=== PATIENT | male | born 1990 | race African-American/Black ===

== ENCOUNTER 2019-09-03 18:08 | Inpatient (IN) | payer MEDICAID, OTHER ==
[~2019-09-03] VITALS: Ht 175.3 cm; Wt 84.8 kg
[2019-09-03] MEDS ORDERED: SODIUM CHLORIDE 0.9% 1,000 ML IV ONE (19:11)
[2019-09-03] MEDS ORDERED: LORAZEPAM 2MG/ML CPJ IV ONE (19:15)
[2019-09-03 19:56] LABS: HEMATOCRIT. 29.7 % (42.0-52.0); MEAN CORPUSCULAR HEMOGLOBIN 18.8 pg (28.0-32.0); MEAN CORPUSCULAR VOLUME 61.9 fL (80.0-94.0); MEAN PLATELET VOLUME 7.3 fl (7.4-10.4); PLATELET 406 x1000/uL (130-400); RED BLOOD CELL COUNT 4.79 mill/uL (4.7-6.1); RED CELL DISTRIBUTION WIDTH 16.7 % (11.6-14.6)
[2019-09-03 20:01] LABS: CHLORIDE 107 mEq/L (98-107)
[2019-09-03 20:04] LABS: ETHANOL BLOOD < 10 mg/dL
[2019-09-03 20:09] LABS: INR 1.1; PROTHROMBIN TIME 12.4 sec (9.6-11.0)
[2019-09-03 20:16] LABS: PLATELET ESTIMATE INCREASED
[2019-09-03 22:58] LABS: CLARITY URINE CLEAR (CLEAR); COLOR URINE YELLOW (YELLOW); KETONES URINE 4+ (NEGATIVE); LEUKOCYTE ESTERASE URINE NEGATIVE (NEGATIVE); NITRITE URINE NEGATIVE (NEGATIVE); OCCULT BLOOD URINE NEGATIVE (NEGATIVE); PH URINE 5.5 (4.5-8.0); PROTEIN URINE TRACE (NEGATIVE); SPECIFIC GRAVITY URINE 1.023 (1.005-1.030); UROBILINOGEN URINE 0.2 E.U./dL (0.2-1.0)
[2019-09-03 23:16] LABS: *AMPHETAMINES SCREEN URINE NEGATIVE (NEGATIVE); *BARBITURATES SCREEN URINE NEGATIVE (NEGATIVE); *BENZODIAZEPINES SCREEN URINE NEGATIVE (NEGATIVE); *COCAINE SCREEN URINE NEGATIVE (NEGATIVE); METHADONE URINE SCREEN NEGATIVE (NEGATIVE); OPIATES URINE SCREEN NEGATIVE (NEGATIVE)
[2019-09-03 23:17] LABS: CANNABINOID URINE SCREEN NEGATIVE (NEGATIVE); PHENCYCLIDINE URINE SCREEN NEGATIVE (NEGATIVE)
[2019-09-04] MEDS ORDERED: SODIUM CHLORIDE 0.9% 1,000 ML IV SCH (08:53)
[2019-09-04] MEDS ORDERED: ONDANSETRON HCL 4MG/2ML INJ IV PRN (09:00)
[2019-09-04] MEDS ORDERED: IPRATROPIUM/ALBUTEROL 0.5-3(2.5)MG/3ML NEB HHN PRN (09:00)
[2019-09-04] MEDS ORDERED: DIPHENHYDRAMINE 50MG/ML VIAL IV PRN (09:00)
[2019-09-04 09:43] VITALS: BP 144/100
[2019-09-04 09:52] VITALS: BP 144/100
[2019-09-04] MEDS: ENOXAPARIN 40MG/0.4ML SYR SUBCUT SCH (10:43)
[2019-09-04 11:59] LABS: PHOSPHORUS 1.3 mg/dL (2.5-4.9)
[2019-09-04 13:55] LABS: CREATINE KINASE MB FRACTION 8.5 ng/mL (0.5-3.6)
[2019-09-04] MEDS ORDERED: DEXTROSE 50% WATER 50ML SYRINGE IV PRN (14:30)
[2019-09-04] MEDS ORDERED: MAGNESIUM 2 G PREMIX 50 ML IV NR (16:00)
[2019-09-04] MEDS: INSULIN LISPRO 100 UNITS/ML SUBCUT SCH ×2 (16:56→21:00)
[2019-09-04] MEDS: BLOOD SUGAR DIAGNOSTIC STRIP TEST SCH ×2 (16:56→21:00)
[2019-09-04 17:53] LABS: T4 FREE 1.16 ng/dL (0.76-1.46)
[2019-09-04 18:28] LABS: FOLIC ACID (FOLATE) SERUM 18.5 ng/mL (>5.38)
[2019-09-04 20:00] VITALS: BP 145/100
[2019-09-04 23:52] LABS: CREATINE KINASE MB FRACTION 5.3 ng/mL (0.5-3.6)
[2019-09-05] VITALS (25 sets, daily range): BP systolic 109–166; BP diastolic 79–121
[2019-09-05 05:59] LABS: CHLORIDE 111 mEq/L (98-107)
[2019-09-05 06:13] LABS: LDL CHOLESTEROL 105 mg/dL (5-100)
[2019-09-05 06:15] LABS: HDL CHOLESTEROL 27 mg/dL (40-59)
[2019-09-05 06:26] LABS: BASOPHILS % 0.1 % (0.0-2.0); EOSINOPHILS % 0.1 % (0.0-5.0); HEMATOCRIT. 29.8 % (42.0-52.0); HEMOGLOBIN. 9.2 g/dL (14.0-18.0); LYMPHOCYTES % 17.5 % (20.0-50.0); MEAN CORPUSCULAR HEMOGLOBIN 18.8 pg (28.0-32.0); MEAN CORPUSCULAR VOLUME 60.9 fL (80.0-94.0); MEAN PLATELET VOLUME 7.8 fl (7.4-10.4); MONOCYTES % 9.7 % (2.0-8.0); NEUTROPHILS % 72.6 % (40.0-76.0); PLATELET 400 x1000/uL (130-400); RED BLOOD CELL COUNT 4.89 mill/uL (4.7-6.1); RED CELL DISTRIBUTION WIDTH 16.7 % (11.6-14.6); T4 FREE 1.08 ng/dL (0.76-1.46)
[2019-09-05 06:31] LABS: VITAMIN B12 SERUM 1946 pg/mL (211-911)
[2019-09-05] MEDS: BLOOD SUGAR DIAGNOSTIC STRIP TEST SCH ×4 (06:45→20:42)
[2019-09-05] MEDS: INSULIN LISPRO 100 UNITS/ML SUBCUT SCH ×4 (07:15→20:43)
[2019-09-05] MEDS: ENOXAPARIN 40MG/0.4ML SYR SUBCUT SCH (09:35)
[2019-09-05] MEDS ORDERED: POTASSIUM CHLORIDE 10MEQ TABLET SR PO NR (14:45)
[2019-09-05 14:55] LABS: BG CARBOXYHEMOGLOBIN 0.3 % (0.5-1.5); BG DEOXYHEMOGLOBIN 7.3 % (0.0-5.0); BG FRACTION INSPIRED OXYGEN 21; BG HCO3 ACT 19.1 mmol/L (22.0-26.0); BG METHEMOGLOBIN 0.3 % (0.0-1.5); BG OXYGEN SATURATION 92.7 % (92.0-98.5); BG OXYHEMOGLOBIN 92.1 % (94.0-97.0); BG PCO2 31.5 mmHg (35.0-45.0); BG SAMPLE SITE RIGHT BRACHIAL; BG VENT MODE ROOM AIR
[2019-09-05] MEDS ORDERED: NICARDIPINE 50 MG in SODIUM CHLORIDE 0.9% 230 ML IV PRN (15:30)
[2019-09-05] MEDS ORDERED: LEVETIRACETAM 500 MG in SODIUM CHLORIDE 0.9% 100 ML IV SCH (15:45)
[2019-09-05] MEDS ORDERED: DEXT 5%/0.45% NACL 1000ML 1,000 ML IV SCH (17:00)
[2019-09-05 17:39] LABS: PHOSPHORUS 3.4 mg/dL (2.5-4.9)
[2019-09-05] MEDS: SODIUM CHLORIDE 0.9% 1,000 ML IV SCH (18:02)
[2019-09-05] MEDS: PANTOPRAZOLE SODIUM 40 MG/VIAL IV SCH (18:25)
[2019-09-05] MEDS: LEVETIRACETAM 500MG PREMIX 100 ML IV SCH (18:26)
[2019-09-05] MEDS: CEFTRIAXONE 1 G PREMIX 50 ML IV SCH (20:20)
[2019-09-05] MEDS ORDERED: LABETALOL 5MG/ML SYR 20 MG/4 ML SYRINGE IV PRN (21:00)
[2019-09-05] MEDS: NICARDIPINE 100 MG in SODIUM CHLORIDE 0.9% 60 ML IV PRN (21:43)
[2019-09-05] MEDS: DEXAMETHASONE 4MG/ML 1ML VIAL IV SCH (21:56)
[2019-09-05] MEDS ORDERED: PHENYTOIN SODIUM 500 MG in SODIUM CHLORIDE 0.9% 50 ML IV NR (22:30)
[2019-09-05] MEDS ORDERED: BACITRACIN 15GM TUBE TOP ONE (22:32)
[2019-09-05] MEDS ORDERED: LIDOCAINE HCL/EPINEPHRINE 1%-EPI 1:100,000 20 ML VIAL ONE (22:33)
[2019-09-05] MEDS ORDERED: BACITRACIN 50,000 UNITS/VIAL ONE (22:33)
[2019-09-05] MEDS ORDERED: THROMBIN (BOVINE) 5000 UNITS/VIAL TOP ONE (22:33)
[2019-09-05] MEDS ORDERED: NORMAL SALINE 0.9% 10 ML SYR ONE (22:33)
[2019-09-05] MEDS ORDERED: MORPHINE SULFATE 2 MG/ML CPJ (NOT FOR IM USE) IV PRN (23:00)
[2019-09-05] MEDS: MORPHINE SULFATE 2 MG/ML CPJ (NOT FOR IM USE) IV PRN (23:15)
[2019-09-05] MEDS ORDERED: FENTANYL CITRATE/PF 50MCG/ML 2ML VIAL ONE (23:57)
[2019-09-05] MEDS ORDERED: ROCURONIUM BROMIDE 10MG/ML VIAL 5ML IV ONE (23:57)
[2019-09-05] MEDS ORDERED: NEOSTIGMINE METHYLSULFATE 1MG/ML 10 ML VIAL ONE (23:57)
[2019-09-05] MEDS ORDERED: GLYCOPYRROLATE 0.2 MG/ML 2ML VIAL ONE (23:58)
[2019-09-05] MEDS ORDERED: PROPOFOL 200MG/20ML VIAL IV ONE (23:58)
[2019-09-05] MEDS ORDERED: MIDAZOLAM HCL 2 MG/2 ML VIAL ONE (23:58)
[2019-09-06] VITALS (97 sets, daily range): BP systolic 110–178; BP diastolic 51–106
[2019-09-06] MEDS ORDERED: DEXAMETHASONE 4MG/ML 1ML VIAL ONE (00:36)
[2019-09-06] MEDS ORDERED: FENTANYL CITRATE/PF 50MCG/ML 2ML VIAL ONE ×2 (00:36→00:59)
[2019-09-06] MEDS ORDERED: ONDANSETRON HCL 4MG/2ML INJ ONE (00:36)
[2019-09-06] MEDS ORDERED: ROCURONIUM BROMIDE 10MG/ML VIAL 5ML IV ONE (01:29)
[2019-09-06] MEDS ORDERED: HYDROMORPHONE HCL/PF 2MG/ML (OR) ONE (01:38)
[2019-09-06] MEDS ORDERED: SKIN ADHESIVE 0.7 GM EA TOP ONE (01:43)
[2019-09-06] MEDS ORDERED: BACITRACIN 15GM TUBE TOP ONE (01:44)
[2019-09-06 03:04] LABS: BG BASE EXCESS -7.4 mmol/L (-2.0-2.0); BG CARBOXYHEMOGLOBIN 0.2 % (0.5-1.5); BG DEOXYHEMOGLOBIN 1.7 % (0.0-5.0); BG FRACTION INSPIRED OXYGEN 50; BG HCO3 ACT 19.6 mmol/L (22.0-26.0); BG METHEMOGLOBIN 0.3 % (0.0-1.5); BG OXYGEN SATURATION 98.3 % (92.0-98.5); BG OXYHEMOGLOBIN 97.8 % (94.0-97.0); BG PCO2 46.5 mmHg (35.0-45.0); BG PH 7.242 (7.350-7.450); BG PO2 161.4 mmHg (75.0-100.0); BG SAMPLE SITE RIGHT RADIAL; BG TIDAL VOLUME(mL) 600 mL; BG TOTAL HEMOGLOBIN 8.9 g/dL (12.0-18.0); BG VENT MODE VENT - A/C; BG VENT RATE 14 set
[2019-09-06] MEDS: MORPHINE SULFATE 2 MG/ML CPJ (NOT FOR IM USE) IV PRN ×2 (03:11→17:40)
[2019-09-06] MEDS: DEXAMETHASONE 4MG/ML 1ML VIAL IV SCH ×3 (03:11→16:00)
[2019-09-06] MEDS: PHENYTOIN SODIUM 100MG/2ML VIAL IV SCH ×3 (05:14→21:40)
[2019-09-06] MEDS: CEFAZOLIN 1000MG PREMIX 50 ML IV SCH ×3 (05:14→21:40)
[2019-09-06] MEDS: NICARDIPINE 100 MG in SODIUM CHLORIDE 0.9% 60 ML IV PRN ×3 (05:17→22:28)
[2019-09-06] MEDS ORDERED: CEFAZOLIN SODIUM 1000MG/VIAL IV SCH (06:00)
[2019-09-06 06:16] LABS: CHLORIDE 114 mEq/L (98-107)
[2019-09-06 06:19] LABS: HEMATOCRIT. 29.4 % (42.0-52.0); HEMOGLOBIN. 8.7 g/dL (14.0-18.0); MEAN CORPUSCULAR HEMOGLOBIN 18.6 pg (28.0-32.0); PLATELET 412 x1000/uL (130-400); RED BLOOD CELL COUNT 4.66 mill/uL (4.7-6.1)
[2019-09-06 06:27] LABS: TOTAL IRON BINDING CAPACITY 303 ug/dL (250-450)
[2019-09-06] MEDS: INSULIN LISPRO 100 UNITS/ML SUBCUT SCH ×4 (06:30→21:38)
[2019-09-06] MEDS: BLOOD SUGAR DIAGNOSTIC STRIP TEST SCH ×4 (06:30→21:33)
[2019-09-06 08:08] LABS: BG BASE EXCESS -4.8 mmol/L (-2.0-2.0); BG CARBOXYHEMOGLOBIN 0.1 % (0.5-1.5); BG DEOXYHEMOGLOBIN 1.3 % (0.0-5.0); BG HCO3 ACT 19.5 mmol/L (22.0-26.0); BG METHEMOGLOBIN 0.2 % (0.0-1.5); BG OXYGEN SATURATION 98.7 % (92.0-98.5); BG OXYHEMOGLOBIN 98.4 % (94.0-97.0); BG PCO2 32.8 mmHg (35.0-45.0); BG PH 7.392 (7.350-7.450); BG PO2 190.9 mmHg (75.0-100.0); BG SAMPLE SITE RIGHT RADIAL; BG TIDAL VOLUME(mL) 600 mL; BG TOTAL HEMOGLOBIN 9.1 g/dL (12.0-18.0); BG VENT MODE VENT - A/C; BG VENT RATE 20 set
[2019-09-06] MEDS: IRON SUCROSE COMPLEX 100 MG/5 ML ML IV SCH (09:00)
[2019-09-06] MEDS: LEVETIRACETAM 500MG PREMIX 100 ML IV SCH ×2 (09:00→21:40)
[2019-09-06] MEDS: PANTOPRAZOLE SODIUM 40 MG/VIAL IV SCH (09:00)
[2019-09-06 10:14] LABS: PLATELET ESTIMATE SLIGHTLY INCREASED
[2019-09-06] MEDS: CEFTRIAXONE 1 G PREMIX 50 ML IV SCH (17:54)
[2019-09-06] MEDS: MORPHINE SULFATE 4 MG/ML CPJ (NOT FOR IM USE) IV PRN ×2 (18:15→22:29)
[2019-09-06] MEDS: LACTULOSE 20G/30ML UDC PO SCH ×2 (18:48→21:40)
[2019-09-06] MEDS: PROPOFOL 10MG/ML 100ML 100 ML IV PRN ×2 (19:10→22:39)
[2019-09-06] MEDS: SODIUM CHLORIDE 0.9% 1,000 ML IV SCH (21:40)
[2019-09-07] VITALS (90 sets, daily range): BP systolic 130–149; BP diastolic 71–100
[2019-09-07] MEDS: MORPHINE SULFATE 4 MG/ML CPJ (NOT FOR IM USE) IV PRN ×8 (02:00→23:56)
[2019-09-07] MEDS: PROPOFOL 10MG/ML 100ML 100 ML IV PRN ×3 (04:30→20:03)
[2019-09-07] MEDS: MORPHINE SULFATE 2 MG/ML CPJ (NOT FOR IM USE) IV PRN ×2 (05:14→08:48)
[2019-09-07] MEDS: PHENYTOIN SODIUM 100MG/2ML VIAL IV SCH ×3 (05:14→22:44)
[2019-09-07] MEDS: CEFAZOLIN 1000MG PREMIX 50 ML IV SCH ×2 (05:31→14:51)
[2019-09-07 05:51] LABS: CHLORIDE 116 mEq/L (98-107); HEMATOCRIT. 27.4 % (42.0-52.0); HEMOGLOBIN. 8.2 g/dL (14.0-18.0); MEAN CORPUSCULAR HEMOGLOBIN 18.8 pg (28.0-32.0); MEAN CORPUSCULAR VOLUME 62.6 fL (80.0-94.0); MEAN PLATELET VOLUME 8.4 fl (7.4-10.4); PLATELET 298 x1000/uL (130-400); RED BLOOD CELL COUNT 4.37 mill/uL (4.7-6.1); RED CELL DISTRIBUTION WIDTH 16.9 % (11.6-14.6)
[2019-09-07] MEDS: SODIUM CHLORIDE 0.9% 1,000 ML IV SCH (05:58)
[2019-09-07 06:03] LABS: PHOSPHORUS 2.7 mg/dL (2.5-4.9)
[2019-09-07] MEDS: BLOOD SUGAR DIAGNOSTIC STRIP TEST SCH ×4 (06:23→21:14)
[2019-09-07] MEDS: INSULIN LISPRO 100 UNITS/ML SUBCUT SCH ×4 (06:24→21:00)
[2019-09-07] MEDS: LACTULOSE 20G/30ML UDC PO SCH ×3 (06:26→22:44)
[2019-09-07] MEDS: NICARDIPINE 100 MG in SODIUM CHLORIDE 0.9% 60 ML IV PRN ×2 (07:12→16:43)
[2019-09-07] MEDS: LEVETIRACETAM 500MG PREMIX 100 ML IV SCH ×2 (08:17→20:01)
[2019-09-07] MEDS: PANTOPRAZOLE SODIUM 40 MG/VIAL IV SCH (08:47)
[2019-09-07] MEDS: IRON SUCROSE COMPLEX 100 MG/5 ML ML IV SCH (08:47)
[2019-09-07 09:44] LABS: PLATELET ESTIMATE NORMAL
[2019-09-07] MEDS ORDERED: PHENYTOIN SODIUM 600 MG in SODIUM CHLORIDE 0.9% 100 ML IV ONE (15:00)
[2019-09-07] MEDS ORDERED: PROPOFOL 10MG/ML 100ML 100 ML IV PRN (15:45)
[2019-09-07] MEDS: CEFTRIAXONE 1 G PREMIX 50 ML IV SCH (18:00)
[2019-09-07] MEDS ORDERED: MORPHINE SULFATE 2 MG/ML CPJ (NOT FOR IM USE) IV NR (20:27)
[2019-09-08] VITALS (107 sets, daily range): BP systolic 125–161; BP diastolic 70–121
[2019-09-08] MEDS: SODIUM CHLORIDE 0.9% 1,000 ML IV SCH ×2 (01:56→21:10)
[2019-09-08] MEDS: NICARDIPINE 100 MG in SODIUM CHLORIDE 0.9% 60 ML IV PRN ×3 (02:04→21:58)
[2019-09-08] MEDS: PROPOFOL 10MG/ML 100ML 100 ML IV PRN ×4 (03:14→21:24)
[2019-09-08] MEDS: MORPHINE SULFATE 4 MG/ML CPJ (NOT FOR IM USE) IV PRN ×9 (03:22→23:11)
[2019-09-08 04:53] LABS: HEMATOCRIT. 29.5 % (42.0-52.0); HEMOGLOBIN. 8.8 g/dL (14.0-18.0); LYMPHOCYTES % 13.3 % (20.0-50.0); MEAN CORPUSCULAR HEMOGLOBIN 18.8 pg (28.0-32.0); MEAN CORPUSCULAR VOLUME 62.9 fL (80.0-94.0); MEAN PLATELET VOLUME 9.2 fl (7.4-10.4); MONOCYTES % 8.4 % (2.0-8.0); NEUTROPHILS % 78.3 % (40.0-76.0); PLATELET 376 x1000/uL (130-400); RED BLOOD CELL COUNT 4.69 mill/uL (4.7-6.1); RED CELL DISTRIBUTION WIDTH 16.8 % (11.6-14.6)
[2019-09-08 05:21] LABS: CHLORIDE 119 mEq/L (98-107)
[2019-09-08] MEDS: LACTULOSE 20G/30ML UDC PO SCH ×3 (05:54→21:08)
[2019-09-08] MEDS: PHENYTOIN SODIUM 100MG/2ML VIAL IV SCH ×3 (05:54→21:09)
[2019-09-08] MEDS: BLOOD SUGAR DIAGNOSTIC STRIP TEST SCH ×4 (06:48→20:56)
[2019-09-08] MEDS: INSULIN LISPRO 100 UNITS/ML SUBCUT SCH ×4 (06:48→21:08)
[2019-09-08] MEDS: IRON SUCROSE COMPLEX 100 MG/5 ML ML IV SCH (09:00)
[2019-09-08] MEDS: LEVETIRACETAM 500MG PREMIX 100 ML IV SCH ×2 (09:00→21:08)
[2019-09-08] MEDS: PANTOPRAZOLE SODIUM 40 MG/VIAL IV SCH (09:00)
[2019-09-08 10:04] LABS: BG BASE EXCESS -3.2 mmol/L (-2.0-2.0); BG CARBOXYHEMOGLOBIN 0.5 % (0.5-1.5); BG DEOXYHEMOGLOBIN 2.1 % (0.0-5.0); BG FRACTION INSPIRED OXYGEN 35; BG HCO3 ACT 19.5 mmol/L (22.0-26.0); BG METHEMOGLOBIN 0.3 % (0.0-1.5); BG OXYGEN SATURATION 97.9 % (92.0-98.5); BG OXYHEMOGLOBIN 97.1 % (94.0-97.0); BG PH 7.477 (7.350-7.450); BG PO2 114.5 mmHg (75.0-100.0); BG SAMPLE SITE RIGHT RADIAL; BG TIDAL VOLUME(mL) 600 mL; BG TOTAL HEMOGLOBIN 9.5 g/dL (12.0-18.0); BG VENT MODE VENT - A/C; BG VENT RATE 20 set
[2019-09-08] MEDS ORDERED: BISACODYL 10MG SUPP PR NR (10:30)
[2019-09-08] MEDS: METOCLOPRAMIDE HCL 10MG/2ML VIAL IV SCH ×3 (12:50→23:07)
[2019-09-08] MEDS: CEFTRIAXONE 1 G PREMIX 50 ML IV SCH (17:20)
[2019-09-08] MEDS ORDERED: DILTIAZEM HCL 5MG/ML 5ML VIAL IV NR (19:00)
[2019-09-08] MEDS: CLONIDINE 0.1MG TABLET PO PRN (22:15)
[2019-09-09] VITALS (91 sets, daily range): BP systolic 122–167; BP diastolic 59–109
[2019-09-09] MEDS: MORPHINE SULFATE 4 MG/ML CPJ (NOT FOR IM USE) IV PRN ×5 (00:37→12:17)
[2019-09-09] MEDS: PROPOFOL 10MG/ML 100ML 100 ML IV PRN ×4 (00:43→12:20)
[2019-09-09] MEDS: DILTIAZEM HCL 5MG/ML 5ML VIAL IV PRN ×2 (00:44→08:23)
[2019-09-09] MEDS: CLONIDINE 0.1MG TABLET PO PRN (03:55)
[2019-09-09 04:07] LABS: ANTI-CARDIOLIPIN AB IGA < 9 APL U/mL (0-11); ANTI-CARDIOLIPIN AB IGG < 9 GPL U/mL (0-14); ANTI-CARDIOLIPIN AB IGM < 9 MPL U/mL (0-12)
[2019-09-09] MEDS: LACTULOSE 20G/30ML UDC PO SCH ×3 (05:19→21:23)
[2019-09-09] MEDS: NICARDIPINE 100 MG in SODIUM CHLORIDE 0.9% 60 ML IV PRN ×3 (05:20→19:58)
[2019-09-09] MEDS: PHENYTOIN SODIUM 100MG/2ML VIAL IV SCH ×3 (05:21→21:23)
[2019-09-09] MEDS: METOCLOPRAMIDE HCL 10MG/2ML VIAL IV SCH ×3 (05:21→17:54)
[2019-09-09 05:58] LABS: CHLORIDE 122 mEq/L (98-107)
[2019-09-09] MEDS: INSULIN LISPRO 100 UNITS/ML SUBCUT SCH ×4 (06:00→20:26)
[2019-09-09] MEDS: BLOOD SUGAR DIAGNOSTIC STRIP TEST SCH ×4 (06:00→20:26)
[2019-09-09 06:03] LABS: BASOPHILS % 0.1 % (0.0-2.0); HEMATOCRIT. 28.5 % (42.0-52.0); HEMOGLOBIN. 8.1 g/dL (14.0-18.0); LYMPHOCYTES % 10.4 % (20.0-50.0); MEAN CORPUSCULAR HEMOGLOBIN 18.8 pg (28.0-32.0); MEAN CORPUSCULAR VOLUME 65.8 fL (80.0-94.0); MEAN PLATELET VOLUME 9.1 fl (7.4-10.4); MONOCYTES % 9.6 % (2.0-8.0); NEUTROPHILS % 79.9 % (40.0-76.0); PLATELET 290 x1000/uL (130-400); RED BLOOD CELL COUNT 4.33 mill/uL (4.7-6.1); RED CELL DISTRIBUTION WIDTH 17.1 % (11.6-14.6)
[2019-09-09] MEDS: AMLODIPINE 5MG TABLET PO SCH ×2 (08:24→20:41)
[2019-09-09 08:26] LABS: BG BASE EXCESS -2.6 mmol/L (-2.0-2.0); BG FRACTION INSPIRED OXYGEN 35; BG HCO3 ACT 21.4 mmol/L (22.0-26.0); BG PCO2 35.2 mmHg (35.0-45.0); BG PH 7.402 (7.350-7.450); BG PO2 106.1 mmHg (75.0-100.0); BG SAMPLE SITE RIGHT RADIAL; BG TIDAL VOLUME(mL) 550 mL; BG VENT MODE VENT - A/C; BG VENT RATE 16 set
[2019-09-09] MEDS ORDERED: CARVEDILOL 6.25 MG TABLET PO SCH (09:00)
[2019-09-09] MEDS ORDERED: METOPROLOL TARTRATE 5MG/5ML VIAL IV PRN (09:45)
[2019-09-09] MEDS ORDERED: CLONIDINE HCL 0.3MG/24HR PATCH TD SCH (10:00)
[2019-09-09 10:06] LABS: ANTI-MYELOPEROXIDASE AB < 9.0 U/mL (0.0-9.0)
[2019-09-09] MEDS: PANTOPRAZOLE SODIUM 40 MG/VIAL IV SCH (10:26)
[2019-09-09] MEDS: LEVETIRACETAM 500MG PREMIX 100 ML IV SCH ×2 (10:26→20:40)
[2019-09-09] MEDS: DEXTROSE 5% WATER 1,000 ML IV SCH (10:28)
[2019-09-09] MEDS: LOSARTAN POTASSIUM 50 MG TABLET PO SCH (12:16)
[2019-09-09 13:10] LABS: ATYPICAL P-ANCA <1:20 titer (Neg:<1:20); CYTOPLASMIC C-ANCA <1:20 titer (Neg:<1:20); PERINUCLEAR P-ANCA <1:20 titer (Neg:<1:20)
[2019-09-09] MEDS ORDERED: FENTANYL CITRATE/PF 1,000 MCG in SODIUM CHLORIDE 0.9% 80 ML IV PRN (13:15)
[2019-09-09 14:01] LABS: CLARITY URINE CLOUDY (CLEAR); COLOR URINE YELLOW (YELLOW); KETONES URINE NEGATIVE (NEGATIVE); LEUKOCYTE ESTERASE URINE TRACE (NEGATIVE); NITRITE URINE NEGATIVE (NEGATIVE); OCCULT BLOOD URINE NEGATIVE (NEGATIVE); PH URINE 5.5 (4.5-8.0); PROTEIN URINE 1+ (NEGATIVE); SPECIFIC GRAVITY URINE 1.027 (1.005-1.030); UROBILINOGEN URINE 0.2 E.U./dL (0.2-1.0)
[2019-09-09 14:35] LABS: SODIUM URINE RANDOM < 5 mEq/L
[2019-09-09] MEDS: CEFTRIAXONE 1 G PREMIX 50 ML IV SCH (17:54)
[2019-09-09] MEDS: CARVEDILOL 12.5MG TABLET PO SCH (20:41)
[2019-09-10] VITALS (126 sets, daily range): BP systolic 49–152; BP diastolic 24–98
[2019-09-10] MEDS: METOCLOPRAMIDE HCL 10MG/2ML VIAL IV SCH ×4 (00:37→18:36)
[2019-09-10] MEDS: DEXTROSE 5% WATER 1,000 ML IV SCH ×3 (00:37→22:26)
[2019-09-10] MEDS: NICARDIPINE 100 MG in SODIUM CHLORIDE 0.9% 60 ML IV PRN ×2 (03:26→10:54)
[2019-09-10 04:11] LABS: ANTI-THROMBIN ACTIVITY 125 % (75-135); DRVVT LA 50.6 sec (0.0-47.0); DRVVT MIX LA 43.8 sec (0.0-47.0); LUPUS ANTICOAG INTERPRETATION Comment: (.); PROTEIN C FUNCTIONAL 100 % (73-180); PTT-LA 43.6 sec (0.0-51.9)
[2019-09-10] MEDS: PHENYTOIN SODIUM 100MG/2ML VIAL IV SCH ×2 (05:34→12:53)
[2019-09-10] MEDS: LACTULOSE 20G/30ML UDC PO SCH ×2 (05:34→12:53)
[2019-09-10 05:46] LABS: BASOPHILS % 0.1 % (0.0-2.0); EOSINOPHILS % 0.5 % (0.0-5.0); HEMATOCRIT. 25.3 % (42.0-52.0); HEMOGLOBIN. 7.4 g/dL (14.0-18.0); LYMPHOCYTES % 10.7 % (20.0-50.0); MEAN CORPUSCULAR HEMOGLOBIN 19.5 pg (28.0-32.0); MEAN CORPUSCULAR VOLUME 66.5 fL (80.0-94.0); MEAN PLATELET VOLUME 8.5 fl (7.4-10.4); MONOCYTES % 10.7 % (2.0-8.0); PLATELET 304 x1000/uL (130-400); RED BLOOD CELL COUNT 3.81 mill/uL (4.7-6.1); RED CELL DISTRIBUTION WIDTH 16.4 % (11.6-14.6)
[2019-09-10 05:50] LABS: CHLORIDE 125 mEq/L (98-107)
[2019-09-10] MEDS: BLOOD SUGAR DIAGNOSTIC STRIP TEST SCH ×4 (06:37→21:00)
[2019-09-10] MEDS: INSULIN LISPRO 100 UNITS/ML SUBCUT SCH ×4 (06:38→21:00)
[2019-09-10] MEDS: PANTOPRAZOLE SODIUM 40 MG/VIAL IV SCH (08:22)
[2019-09-10] MEDS: MORPHINE SULFATE 4 MG/ML CPJ (NOT FOR IM USE) IV PRN ×4 (08:22→14:49)
[2019-09-10] MEDS: AMLODIPINE 5MG TABLET PO SCH ×2 (08:23→21:00)
[2019-09-10] MEDS: LOSARTAN POTASSIUM 50 MG TABLET PO SCH (08:23)
[2019-09-10] MEDS: CARVEDILOL 12.5MG TABLET PO SCH ×2 (08:23→21:00)
[2019-09-10] MEDS: LEVETIRACETAM 500MG PREMIX 100 ML IV SCH ×2 (08:24→22:26)
[2019-09-10] MEDS ORDERED: METOPROLOL TARTRATE 5MG/5ML VIAL IV PRN (09:30)
[2019-09-10 09:33] LABS: BG BASE EXCESS -2.1 mmol/L (-2.0-2.0); BG CARBOXYHEMOGLOBIN 0.8 % (0.5-1.5); BG DEOXYHEMOGLOBIN 2.6 % (0.0-5.0); BG FRACTION INSPIRED OXYGEN 35; BG HCO3 ACT 22.3 mmol/L (22.0-26.0); BG METHEMOGLOBIN 0.5 % (0.0-1.5); BG OXYGEN SATURATION 97.4 % (92.0-98.5); BG OXYHEMOGLOBIN 96.1 % (94.0-97.0); BG PCO2 36.2 mmHg (35.0-45.0); BG PH 7.408 (7.350-7.450); BG PO2 109.6 mmHg (75.0-100.0); BG SAMPLE SITE RIGHT RADIAL; BG TIDAL VOLUME(mL) 550 mL; BG TOTAL HEMOGLOBIN 5.9 g/dL (12.0-18.0); BG VENT MODE VENT - A/C; BG VENT RATE 16 set
[2019-09-10] MEDS ORDERED: CLONIDINE HCL 0.3MG/24HR PATCH TOP SCH (10:00)
[2019-09-10] MEDS: HYDRALAZINE 20MG/ML VIAL IV SCH ×2 (11:58→18:00)
[2019-09-10 13:06] LABS: ANTI-PROTEINASE 3 ABS 9.2 U/mL (0.0-3.5)
[2019-09-10 13:15] LABS: PLATELET ESTIMATE NORMAL
[2019-09-10] MEDS ORDERED: ESMOLOL 2500MG PREMIX 250 ML IV PRN (16:00)
[2019-09-10] MEDS ORDERED: PHENYLEPHRINE 20 MG in DEXT 5% WATER 248 ML IV PRN (17:30)
[2019-09-10] MEDS: NOREPINEPHRINE 16 MG in DEXT 5% WATER 484 ML IV PRN (18:30)
[2019-09-10] MEDS: CEFTRIAXONE 1 G PREMIX 50 ML IV SCH (18:36)
[2019-09-10] MEDS: PHENYLEPHRINE 80 MG in DEXT 5% WATER 492 ML IV PRN (19:45)
[2019-09-11] VITALS (96 sets, daily range): BP systolic 84–151; BP diastolic 35–111
[2019-09-11] MEDS: LACTULOSE 20G/30ML UDC PO SCH ×4 (00:15→21:58)
[2019-09-11] MEDS: PHENYTOIN SODIUM 100MG/2ML VIAL IV SCH ×4 (00:15→21:58)
[2019-09-11] MEDS: METOCLOPRAMIDE HCL 10MG/2ML VIAL IV SCH ×4 (00:15→17:25)
[2019-09-11] MEDS: DEXTROSE 5% WATER 1,000 ML IV SCH ×3 (03:53→18:52)
[2019-09-11 05:27] LABS: BASOPHILS % 0.1 % (0.0-2.0); EOSINOPHILS % 2.9 % (0.0-5.0); HEMATOCRIT. 24.1 % (42.0-52.0); HEMOGLOBIN. 7.1 g/dL (14.0-18.0); LYMPHOCYTES % 9.4 % (20.0-50.0); MEAN CORPUSCULAR HEMOGLOBIN 20.6 pg (28.0-32.0); MEAN CORPUSCULAR VOLUME 69.7 fL (80.0-94.0); MEAN PLATELET VOLUME 9.3 fl (7.4-10.4); MONOCYTES % 5.3 % (2.0-8.0); NEUTROPHILS % 82.3 % (40.0-76.0); PLATELET 176 x1000/uL (130-400); RED BLOOD CELL COUNT 3.46 mill/uL (4.7-6.1); RED CELL DISTRIBUTION WIDTH 16.9 % (11.6-14.6)
[2019-09-11] MEDS: HYDRALAZINE 20MG/ML VIAL IV SCH ×2 (05:36)
[2019-09-11 05:43] LABS: PHOSPHORUS 6.1 mg/dL (2.5-4.9)
[2019-09-11] MEDS: PANTOPRAZOLE SODIUM 40 MG/VIAL IV SCH (09:03)
[2019-09-11] MEDS: LEVETIRACETAM 500MG PREMIX 100 ML IV SCH ×2 (09:03→21:53)
[2019-09-11 10:35] LABS: BG BASE EXCESS -0.9 mmol/L (-2.0-2.0); BG CARBOXYHEMOGLOBIN 0.9 % (0.5-1.5); BG DEOXYHEMOGLOBIN 0.3 % (0.0-5.0); BG FRACTION INSPIRED OXYGEN 100; BG HCO3 ACT 25.5 mmol/L (22.0-26.0); BG METHEMOGLOBIN 0.2 % (0.0-1.5); BG OXYGEN SATURATION 99.7 % (92.0-98.5); BG OXYHEMOGLOBIN 98.6 % (94.0-97.0); BG PH 7.316 (7.350-7.450); BG PO2 538.2 mmHg (75.0-100.0); BG SAMPLE SITE RIGHT RADIAL; BG TIDAL VOLUME(mL) 550 mL; BG TOTAL HEMOGLOBIN 8.1 g/dL (12.0-18.0); BG VENT MODE VENT - A/C; BG VENT RATE 16 set
[2019-09-11 11:30] LABS: BG BASE EXCESS -2.2 mmol/L (-2.0-2.0); BG CARBOXYHEMOGLOBIN 0.6 % (0.5-1.5); BG DEOXYHEMOGLOBIN 0.5 % (0.0-5.0); BG FRACTION INSPIRED OXYGEN 100; BG HCO3 ACT 23.1 mmol/L (22.0-26.0); BG METHEMOGLOBIN 0.3 % (0.0-1.5); BG OXYGEN SATURATION 99.5 % (92.0-98.5); BG OXYHEMOGLOBIN 98.6 % (94.0-97.0); BG PH 7.359 (7.350-7.450); BG PO2 515.6 mmHg (75.0-100.0); BG SAMPLE SITE RIGHT RADIAL; BG TIDAL VOLUME(mL) 550 mL; BG TOTAL HEMOGLOBIN 7.1 g/dL (12.0-18.0); BG VENT MODE VENT - A/C; BG VENT RATE 20 set
[2019-09-11] MEDS: BLOOD SUGAR DIAGNOSTIC STRIP TEST SCH ×3 (11:44→21:53)
[2019-09-11] MEDS: INSULIN LISPRO 100 UNITS/ML SUBCUT SCH ×3 (11:45→21:00)
[2019-09-11 12:23] LABS: BG BASE EXCESS -1.7 mmol/L (-2.0-2.0); BG DEOXYHEMOGLOBIN 0.3 % (0.0-5.0); BG FRACTION INSPIRED OXYGEN 44; BG HCO3 ACT 28.5 mmol/L (22.0-26.0); BG METHEMOGLOBIN 0.5 % (0.0-1.5); BG OXYGEN SATURATION 99.7 % (92.0-98.5); BG OXYHEMOGLOBIN 98.2 % (94.0-97.0); BG PCO2 95.1 mmHg (35.0-45.0); BG PH 7.094 (7.350-7.450); BG PO2 396.6 mmHg (75.0-100.0); BG SAMPLE SITE RIGHT RADIAL; BG TOTAL HEMOGLOBIN 7.3 g/dL (12.0-18.0); BG VENT MODE NASAL CANNULA
[2019-09-11] MEDS: PHENYLEPHRINE 80 MG in DEXT 5% WATER 492 ML IV PRN (12:34)
[2019-09-11] MEDS: NOREPINEPHRINE 16 MG in DEXT 5% WATER 484 ML IV PRN (22:37)
[2019-09-12] VITALS (78 sets, daily range): BP systolic 74–153; BP diastolic 36–99
[2019-09-12] MEDS: METOCLOPRAMIDE HCL 10MG/2ML VIAL IV SCH ×3 (00:44→12:13)
[2019-09-12] MEDS: PHENYLEPHRINE 80 MG in DEXT 5% WATER 492 ML IV PRN (02:56)
[2019-09-12] MEDS: DEXTROSE 5% WATER 1,000 ML IV SCH ×2 (03:17→13:16)
[2019-09-12 05:21] LABS: PHOSPHORUS 5.7 mg/dL (2.5-4.9)
[2019-09-12] MEDS: PHENYTOIN SODIUM 100MG/2ML VIAL IV SCH (05:34)
[2019-09-12] MEDS: LACTULOSE 20G/30ML UDC PO SCH (05:34)
[2019-09-12] MEDS: BLOOD SUGAR DIAGNOSTIC STRIP TEST SCH ×2 (06:01→11:30)
[2019-09-12] MEDS: INSULIN LISPRO 100 UNITS/ML SUBCUT SCH ×2 (06:02→12:16)
[2019-09-12 06:03] LABS: HEMATOCRIT. 22.7 % (42.0-52.0); RED BLOOD CELL COUNT 3.24 mill/uL (4.7-6.1)
[2019-09-12 06:04] LABS: MEAN CORPUSCULAR HEMOGLOBIN 19.9 pg (28.0-32.0); MEAN PLATELET VOLUME 9.1 fl (7.4-10.4); PLATELET 145 x1000/uL (130-400); RED CELL DISTRIBUTION WIDTH 17.3 % (11.6-14.6)
[2019-09-12 06:05] LABS: HEMOGLOBIN. 6.4 g/dL (14.0-18.0); MEAN CORPUSCULAR VOLUME 70.2 fL (80.0-94.0)
[2019-09-12 07:40] LABS: NUCLEATED RED BLOOD CELLS 1 /100 WBC
[2019-09-12 07:42] LABS: PLATELET ESTIMATE NORMAL
[2019-09-12] MEDS: PANTOPRAZOLE SODIUM 40 MG/VIAL IV SCH (08:47)
[2019-09-12] MEDS: LEVETIRACETAM 500MG PREMIX 100 ML IV SCH (08:47)
[2019-09-16] MEDS ORDERED: CLONIDINE HCL 0.3MG/24HR PATCH TD SCH (09:00)
[2019-09-16 09:06] LABS: HGB A 97.7 % (96.4-98.8); HGB A2 2.3 % (1.8-3.2)
== END 2019-09-11 12:23 | disposition home or self-care (01) | DRG 853 ==
LOC: ER 18:08 → 5WST 23:43 → EDBEDREQ 23:53 → ENRESERV 09-04 07:31 → MICUSO 09-05 19:00
PROVIDERS: ADMIT Internal Medicine; ATTEND Internal Medicine
PROC: 00N00ZZ Release Brain, Open Approach (ICD-10-PCS; principal; 2019-09-06)
PROC: 00U20KZ Supplement Dura Mater with Nonautologous Tissue Substitute, Open Approach (ICD-10-PCS; 2019-09-06)
PROC: 009430Z Drainage of Intracranial Subdural Space with Drainage Device, Percutaneous Approach (ICD-10-PCS; 2019-09-06)
PROC: 4A103BD Monitoring of Intracranial Pressure, Percutaneous Approach (ICD-10-PCS; 2019-09-06)
PROC: 5A1955Z Respiratory Ventilation, Greater than 96 Consecutive Hours (ICD-10-PCS; 2019-09-06)
PROC: 0BH17EZ Insertion of Endotracheal Airway into Trachea, Via Natural or Artificial Opening (ICD-10-PCS; 2019-09-06)
PROC: 05HY33Z Insertion of Infusion Device into Upper Vein, Percutaneous Approach (ICD-10-PCS; 2019-09-08)
PROC: B54MZZA Ultrasonography of Right Upper Extremity Veins, Guidance (ICD-10-PCS; 2019-09-08)
DX: A41.9 Sepsis, unspecified organism (principal); G92 Toxic encephalopathy; E43 Unspecified severe protein-calorie malnutrition; G82.50 Quadriplegia, unspecified; I61.0 Nontraumatic intracerebral hemorrhage in hemisphere, subcortical; I61.5 Nontraumatic intracerebral hemorrhage, intraventricular; I63.512 Cerebral infarction due to unspecified occlusion or stenosis of left middle cerebral artery; I60.9 Nontraumatic subarachnoid hemorrhage, unspecified; J96.00 Acute respiratory failure, unspecified whether with hypoxia or hypercapnia; N17.9 Acute kidney failure, unspecified; E72.20 Disorder of urea cycle metabolism, unspecified; E87.0 Hyperosmolality and hypernatremia; K56.7 Ileus, unspecified; D50.9 Iron deficiency anemia, unspecified; E83.42 Hypomagnesemia; K52.9 Noninfective gastroenteritis and colitis, unspecified; I10 Essential (primary) hypertension; R13.10 Dysphagia, unspecified; Z20.828 Contact with and (suspected) exposure to other viral communicable diseases; D72.810 Lymphocytopenia; E87.6 Hypokalemia; Z66 Do not resuscitate; Z78.1 Physical restraint status; Z79.899 Other long term (current) drug therapy; Z86.73 Personal history of transient ischemic attack (TIA), and cerebral infarction without residual deficits; Z82.49 Family history of ischemic heart disease and other diseases of the circulatory system
CPT/HCPCS: 36415; 36600; 70544; 70553; 71045; 74018; 74176; 76937; 78610; 80048; 80053; 80061; 80076; 80185; 80305; 80320; 81003; 81400; 81403; 81407; 81479; 82140; 82375; 82550; 82553; 82607; 82728; 82746; 82805; 82962; 83021; 83036; 83520; 83540; 83550; 83735; 83880; 83930; 83935; 84100; 84145; 84295; 84300; 84439; 84443; 84478; 84481; 84484; 85025; 85044; 85300; 85303; 85306; 85379; 85613; 85651; 85660; 85732; 86140; 86147; 86256; 86850; 86900; 87070; 93005; 93306; 93880; 93970; 94002; 94003; 97162; 97166; 99285; A9512; C1725; C1769; C9113; J0360; J0690; J0696; J1100; J1165; J1170; J1650; J1815; J1953; J2060; J2250; J2270; J2370; J2405; J2704; J2710; J2765; J3010; J3475; J3490; J7030; J7050; J7060; J7070; G0480; U0003-CS

== ENCOUNTER 2019-09-12 16:16 | Inpatient (IN) | payer OTHER ==
[2019-09-12] VITALS (13 sets, daily range): BP systolic 1–129; BP diastolic 0–71
[~2019-09-12] VITALS: Ht 175.3 cm; Wt 86.6 kg
[2019-09-12] MEDS ORDERED: PHENYLEPHRINE 40 MG in DEXT 5% WATER 496 ML IV PRN (16:45)
[2019-09-12] MEDS ORDERED: NOREPINEPHRINE 16 MG in DEXT 5% WATER 484 ML IV PRN (16:45)
[2019-09-12] MEDS ORDERED: DOBUTAMINE 250MG PREMIX 250 ML IV STA (16:51)
[2019-09-12] MEDS ORDERED: LEVOTHYROXINE SODIUM 100 MCG/ VIAL IV STA (16:51)
[2019-09-12] MEDS ORDERED: VASOPRESSIN 100 UNIT in SODIUM CHLORIDE 0.9% 95 ML IV STA (16:51)
[2019-09-12] MEDS ORDERED: THIAMINE HCL 500 MG in SODIUM CHLORIDE 0.9% 95 ML IV SCH (16:57)
[2019-09-12] MEDS ORDERED: METHYLPREDNISOLONE 40MG/ML INJ IV STA (16:57)
[2019-09-12] MEDS ORDERED: VANCOMYCIN 1,500 MG in DEXT 5% WATER 250 ML IV SCH (17:00)
[2019-09-12] MEDS ORDERED: HETASTARCH/NORMAL SALINE 500 ML PLAST..BAG IV STA (17:03)
[2019-09-12] MEDS ORDERED: DOBUTAMINE 250MG PREMIX 250 ML IV SCH (17:15)
[2019-09-12] MEDS ORDERED: VASOPRESSIN 100 UNIT in SODIUM CHLORIDE 0.9% 95 ML IV SCH (17:15)
[2019-09-12 18:27] LABS: MEAN CORPUSCULAR HEMOGLOBIN 20.2 pg (28.0-32.0); MEAN CORPUSCULAR VOLUME 69.4 fL (80.0-94.0); MEAN PLATELET VOLUME 8.7 fl (7.4-10.4); PLATELET 144 x1000/uL (130-400); RED BLOOD CELL COUNT 3.31 mill/uL (4.7-6.1); RED CELL DISTRIBUTION WIDTH 17.8 % (11.6-14.6)
[2019-09-12 18:29] LABS: CHLORIDE 118 mEq/L (98-107)
[2019-09-12] MEDS ORDERED: SODIUM CHLORIDE 0.9% IV SCH (18:30)
[2019-09-12] MEDS ORDERED: METHYLPREDNISOLONE SOD IV SCH (18:30)
[2019-09-12 18:36] LABS: AMYLASE 134 IU/L (25-115)
[2019-09-12 18:37] LABS: PHOSPHORUS 6.6 mg/dL (2.5-4.9)
[2019-09-12 18:39] LABS: CREATINE KINASE MB FRACTION 38.6 ng/mL (0.5-3.6)
[2019-09-12 18:41] LABS: HEMOGLOBIN. 6.7 g/dL (14.0-18.0)
[2019-09-12 18:51] LABS: CREATINE KINASE 2023 IU/L (39-308)
[2019-09-12 19:14] LABS: BG BASE EXCESS -6.5 mmol/L (-2.0-2.0); BG CARBOXYHEMOGLOBIN 0.8 % (0.5-1.5); BG FRACTION INSPIRED OXYGEN 35; BG HCO3 ACT 18.7 mmol/L (22.0-26.0); BG METHEMOGLOBIN 0.3 % (0.0-1.5); BG OXYHEMOGLOBIN 95.9 % (94.0-97.0); BG PCO2 35.6 mmHg (35.0-45.0); BG PH 7.339 (7.350-7.450); BG SAMPLE SITE LEFT RADIAL; BG TIDAL VOLUME(mL) 550 mL; BG TOTAL HEMOGLOBIN 6.4 g/dL (12.0-18.0); BG VENT MODE VENT - A/C; BG VENT RATE 20 set
[2019-09-12 19:28] LABS: INR 1.1; PARTIAL THROMBOPLASTIN TIME 36.6 sec (23.4-31.0); PROTHROMBIN TIME 11.6 sec (9.6-11.0)
[2019-09-12 20:55] LABS: ATYPICAL LYMPHOCYTES 1; NUCLEATED RED BLOOD CELLS 3 /100 WBC; PLATELET ESTIMATE NORMAL
[2019-09-12] MEDS: LEVOTHYROXINE SODIUM 200 MCG in SODIUM CHLORIDE 0.9% 500 ML IV SCH (21:52)
[2019-09-12] MEDS ORDERED: PIPERACILLIN/TAZOBACTAM 3.375 G/VIAL IV SCH (22:00)
[2019-09-12 22:21] LABS: BG BASE EXCESS -6.3 mmol/L (-2.0-2.0); BG CARBOXYHEMOGLOBIN 0.7 % (0.5-1.5); BG DEOXYHEMOGLOBIN 3.3 % (0.0-5.0); BG FRACTION INSPIRED OXYGEN 40%; BG HCO3 ACT 20.3 mmol/L (22.0-26.0); BG METHEMOGLOBIN 0.3 % (0.0-1.5); BG OXYGEN SATURATION 96.7 % (92.0-98.5); BG OXYHEMOGLOBIN 95.7 % (94.0-97.0); BG PCO2 45.9 mmHg (35.0-45.0); BG PH 7.264 (7.350-7.450); BG PO2 105.7 mmHg (75.0-100.0); BG SAMPLE SITE A-LINE; BG TOTAL HEMOGLOBIN 8.1 g/dL (12.0-18.0); BG VENT MODE VENT - PCV
[2019-09-12] MEDS: PIPERACILLIN/TAZOBACTAM 3.375 G in DEXT 5% WATER 100 ML IV SCH (22:27)
[2019-09-12] MEDS: INSULIN REGULAR (DRIP) 100 UNITS in SODIUM CHLORIDE 0.9% 99 ML IV SCH (23:07)
[2019-09-12] MEDS: HETASTARCH/NORMAL SALINE 500 ML PLAST..BAG IV SCH (23:21)
[2019-09-13] VITALS (90 sets, daily range): BP systolic 91–188; BP diastolic 48–134
[2019-09-13 00:31] LABS: BG BASE EXCESS -6.4 mmol/L (-2.0-2.0); BG CARBOXYHEMOGLOBIN 0.6 % (0.5-1.5); BG DEOXYHEMOGLOBIN 3.2 % (0.0-5.0); BG FRACTION INSPIRED OXYGEN 40; BG HCO3 ACT 19.5 mmol/L (22.0-26.0); BG METHEMOGLOBIN 0.3 % (0.0-1.5); BG OXYGEN SATURATION 96.8 % (92.0-98.5); BG OXYHEMOGLOBIN 95.9 % (94.0-97.0); BG PCO2 40.4 mmHg (35.0-45.0); BG PH 7.301 (7.350-7.450); BG PO2 101.6 mmHg (75.0-100.0); BG SAMPLE SITE A-LINE; BG TOTAL HEMOGLOBIN 8.5 g/dL (12.0-18.0); BG VENT MODE VENT - PCV
[2019-09-13 00:53] LABS: HEMATOCRIT. 26.2 % (42.0-52.0); HEMOGLOBIN. 8.3 g/dL (14.0-18.0); MEAN CORPUSCULAR HEMOGLOBIN 23.8 pg (28.0-32.0); MEAN CORPUSCULAR VOLUME 75.1 fL (80.0-94.0); MEAN PLATELET VOLUME 9.4 fl (7.4-10.4); PLATELET 124 x1000/uL (130-400); RED BLOOD CELL COUNT 3.49 mill/uL (4.7-6.1); RED CELL DISTRIBUTION WIDTH 28.7 % (11.6-14.6)
[2019-09-13 01:06] LABS: PHOSPHORUS 6.3 mg/dL (2.5-4.9)
[2019-09-13] MEDS: ALBUMIN HUMAN 12.5GM/50ML (25%) IV SCH ×2 (01:06→01:36)
[2019-09-13 01:11] LABS: CREATINE KINASE MB FRACTION 59.5 ng/mL (0.5-3.6)
[2019-09-13 01:12] LABS: INR 1.1; PARTIAL THROMBOPLASTIN TIME 34.8 sec (23.4-31.0); PROTHROMBIN TIME 11.6 sec (9.6-11.0)
[2019-09-13] MEDS ORDERED: FUROSEMIDE 40MG/4ML VIAL IVP SCH (01:30)
[2019-09-13] MEDS ORDERED: ALBUMIN HUMAN 25GM/100ML (25%) IV SCH (02:00)
[2019-09-13] MEDS ORDERED: KCL 20MEQ/100ML PREMIX 100 ML IV SCH ×2 (03:00→22:19)
[2019-09-13] MEDS: KCL 20MEQ/100ML PREMIX 100 ML IV SCH ×2 (03:38→04:48)
[2019-09-13] MEDS ORDERED: DEXTROSE 50% WATER 50ML SYRINGE IV SCH (05:00)
[2019-09-13] MEDS: PIPERACILLIN/TAZOBACTAM 3.375 G in DEXT 5% WATER 100 ML IV SCH ×3 (05:10→19:51)
[2019-09-13] MEDS ORDERED: METHYLPREDNISOLONE SOD SUCC 125 MG/2 ML VIAL IV SCH (06:00)
[2019-09-13] MEDS ORDERED: ALBUMIN HUMAN 12.5GM/50ML (25%) IV SCH (06:00)
[2019-09-13 06:07] LABS: BG BASE EXCESS -9.2 mmol/L (-2.0-2.0); BG CARBOXYHEMOGLOBIN 0.7 % (0.5-1.5); BG DEOXYHEMOGLOBIN 2.1 % (0.0-5.0); BG FRACTION INSPIRED OXYGEN 40; BG HCO3 ACT 15.8 mmol/L (22.0-26.0); BG METHEMOGLOBIN 0.3 % (0.0-1.5); BG OXYGEN SATURATION 97.9 % (92.0-98.5); BG OXYHEMOGLOBIN 96.9 % (94.0-97.0); BG PCO2 30.8 mmHg (35.0-45.0); BG PH 7.329 (7.350-7.450); BG PO2 125.6 mmHg (75.0-100.0); BG SAMPLE SITE A-LINE; BG TOTAL HEMOGLOBIN 8.2 g/dL (12.0-18.0); BG VENT MODE VENT - PCV
[2019-09-13 06:21] LABS: INR 1.1; PARTIAL THROMBOPLASTIN TIME 37.1 sec (23.4-31.0); PROTHROMBIN TIME 11.9 sec (9.6-11.0)
[2019-09-13 06:26] LABS: HEMATOCRIT. 26.2 % (42.0-52.0); HEMOGLOBIN. 8.4 g/dL (14.0-18.0); MEAN CORPUSCULAR HEMOGLOBIN 23.6 pg (28.0-32.0); RED BLOOD CELL COUNT 3.54 mill/uL (4.7-6.1); RED CELL DISTRIBUTION WIDTH 28.9 % (11.6-14.6)
[2019-09-13 06:36] LABS: CREATINE KINASE MB FRACTION 60.4 ng/mL (0.5-3.6)
[2019-09-13 06:39] LABS: CLARITY URINE CLOUDY (CLEAR); COLOR URINE YELLOW (YELLOW); KETONES URINE NEGATIVE (NEGATIVE); LEUKOCYTE ESTERASE URINE NEGATIVE (NEGATIVE); NITRITE URINE NEGATIVE (NEGATIVE); OCCULT BLOOD URINE 3+ (NEGATIVE); PROTEIN URINE 1+ (NEGATIVE); SPECIFIC GRAVITY URINE 1.015 (1.005-1.030)
[2019-09-13] MEDS: THIAMINE HCL 100 MG in SODIUM CHLORIDE 0.9% 50 ML IV SCH ×3 (06:46→21:54)
[2019-09-13] MEDS ORDERED: SODIUM BICARBONATE 150 MEQ in WATER FOR INJECTION,STERILE 1,000 ML IV ONE (07:00)
[2019-09-13] MEDS: INSULIN REGULAR IV SCH (08:41)
[2019-09-13] MEDS: POTASSIUM CHLORIDE IV SCH (08:41)
[2019-09-13] MEDS: [UNRECOGNIZED DRUG - OTHER] IV SCH (08:41)
[2019-09-13] MEDS: METHYLPREDNISOLONE SOD SUCC 500 MG in SODIUM CHLORIDE 0.9% 100 ML IV SCH ×2 (08:41→16:02)
[2019-09-13] MEDS: FUROSEMIDE 40MG/4ML VIAL IVP SCH ×3 (08:45→20:11)
[2019-09-13 09:14] LABS: HEMATOCRIT. 24.2 % (42.0-52.0); HEMOGLOBIN. 7.6 g/dL (14.0-18.0); MEAN CORPUSCULAR HEMOGLOBIN 23.2 pg (28.0-32.0); MEAN CORPUSCULAR VOLUME 73.6 fL (80.0-94.0); MEAN PLATELET VOLUME 9.7 fl (7.4-10.4); PLATELET 130 x1000/uL (130-400); RED BLOOD CELL COUNT 3.28 mill/uL (4.7-6.1); RED CELL DISTRIBUTION WIDTH 28.2 % (11.6-14.6)
[2019-09-13 09:16] LABS: INR 1.1; PARTIAL THROMBOPLASTIN TIME 38.8 sec (23.4-31.0); PROTHROMBIN TIME 12.2 sec (9.6-11.0)
[2019-09-13 09:40] LABS: CHLORIDE 117 mEq/L (98-107)
[2019-09-13 09:44] LABS: AMYLASE 207 IU/L (25-115)
[2019-09-13 09:46] LABS: PHOSPHORUS 4.5 mg/dL (2.5-4.9)
[2019-09-13 09:49] LABS: CREATINE KINASE MB FRACTION 53.9 ng/mL (0.5-3.6)
[2019-09-13] MEDS: VANCOMYCIN 500 MG PREMIX 100 ML IV SCH ×2 (09:52→19:50)
[2019-09-13] MEDS: LEVOTHYROXINE SODIUM 200 MCG in SODIUM CHLORIDE 0.9% 500 ML IV SCH ×3 (09:52→20:33)
[2019-09-13 10:01] LABS: CREATINE KINASE 2376 IU/L (39-308)
[2019-09-13 11:08] LABS: PLATELET ESTIMATE SLIGHTLY DECREASED
[2019-09-13 13:05] LABS: PLATELET ESTIMATE SLIGHTLY DECREASED
[2019-09-13 13:07] LABS: PLATELET 107 x1000/uL (130-400)
[2019-09-13] MEDS: INSULIN REGULAR (DRIP) 100 UNITS in SODIUM CHLORIDE 0.9% 99 ML IV SCH ×2 (13:09→16:04)
[2019-09-13 13:22] LABS: BG BASE EXCESS -2.5 mmol/L (-2.0-2.0); BG CARBOXYHEMOGLOBIN 0.4 % (0.5-1.5); BG DEOXYHEMOGLOBIN 1.6 % (0.0-5.0); BG FRACTION INSPIRED OXYGEN 40; BG HCO3 ACT 23.9 mmol/L (22.0-26.0); BG METHEMOGLOBIN 0.1 % (0.0-1.5); BG OXYGEN SATURATION 98.4 % (92.0-98.5); BG OXYHEMOGLOBIN 97.9 % (94.0-97.0); BG PCO2 49.7 mmHg (35.0-45.0); BG PH 7.299 (7.350-7.450); BG PO2 146.3 mmHg (75.0-100.0); BG SAMPLE SITE A-LINE; BG TOTAL HEMOGLOBIN 7.7 g/dL (12.0-18.0); BG VENT MODE APRV
[2019-09-13 13:55] LABS: PLATELET ESTIMATE NORMAL
[2019-09-13 18:19] LABS: BG CARBOXYHEMOGLOBIN 0.4 % (0.5-1.5); BG DEOXYHEMOGLOBIN 1.1 % (0.0-5.0); BG FRACTION INSPIRED OXYGEN 40; BG METHEMOGLOBIN 0.2 % (0.0-1.5); BG OXYGEN SATURATION 98.9 % (92.0-98.5); BG OXYHEMOGLOBIN 98.3 % (94.0-97.0); BG PCO2 47.1 mmHg (35.0-45.0); BG PH 7.422 (7.350-7.450); BG PO2 184.8 mmHg (75.0-100.0); BG SAMPLE SITE A-LINE; BG TOTAL HEMOGLOBIN 7.5 g/dL (12.0-18.0); BG VENT MODE APRV
[2019-09-13] MEDS: HETASTARCH/NORMAL SALINE 500 ML PLAST..BAG IV SCH (19:12)
[2019-09-13] MEDS ORDERED: ACETAZOLAMIDE SODIUM 500MG/VIAL IV NR (20:00)
[2019-09-13 20:44] LABS: INR 1.3; PARTIAL THROMBOPLASTIN TIME 37.9 sec (23.4-31.0); PROTHROMBIN TIME 13.3 sec (9.6-11.0)
[2019-09-13 20:48] LABS: HEMATOCRIT. 22.7 % (42.0-52.0); HEMOGLOBIN. 7.2 g/dL (14.0-18.0); MEAN CORPUSCULAR HEMOGLOBIN 23.3 pg (28.0-32.0); MEAN CORPUSCULAR VOLUME 73.4 fL (80.0-94.0); MEAN PLATELET VOLUME 9.9 fl (7.4-10.4); PLATELET 127 x1000/uL (130-400); RED BLOOD CELL COUNT 3.09 mill/uL (4.7-6.1); RED CELL DISTRIBUTION WIDTH 28.5 % (11.6-14.6)
[2019-09-13 20:50] LABS: BG BASE EXCESS 4.1 mmol/L (-2.0-2.0); BG CARBOXYHEMOGLOBIN 0.3 % (0.5-1.5); BG DEOXYHEMOGLOBIN 0.6 % (0.0-5.0); BG FRACTION INSPIRED OXYGEN 99; BG HCO3 ACT 29.6 mmol/L (22.0-26.0); BG METHEMOGLOBIN 0.4 % (0.0-1.5); BG OXYGEN SATURATION 99.4 % (92.0-98.5); BG OXYHEMOGLOBIN 98.7 % (94.0-97.0); BG PCO2 49.6 mmHg (35.0-45.0); BG PH 7.393 (7.350-7.450); BG PO2 509.6 mmHg (75.0-100.0); BG SAMPLE SITE A-LINE; BG TOTAL HEMOGLOBIN 7.6 g/dL (12.0-18.0); BG VENT MODE APRVC
[2019-09-13 21:25] LABS: AMYLASE 151 IU/L (25-115); CHLORIDE 114 mEq/L (98-107); CREATINE KINASE 1314 IU/L (39-308); CREATINE KINASE MB FRACTION 37.3 ng/mL (0.5-3.6); PHOSPHORUS 2.5 mg/dL (2.5-4.9)
[2019-09-13 21:29] LABS: PLATELET ESTIMATE NORMAL
[2019-09-14] VITALS (100 sets, daily range): BP systolic 72–231; BP diastolic 32–176
[2019-09-14] LABS: CLARITY URINE CLOUDY (CLEAR); COLOR URINE DARK YELLOW (YELLOW); KETONES URINE NEGATIVE (NEGATIVE); LEUKOCYTE ESTERASE URINE NEGATIVE (NEGATIVE); NITRITE URINE NEGATIVE (NEGATIVE); OCCULT BLOOD URINE 2+ (NEGATIVE); PH URINE 5.5 (4.5-8.0); PROTEIN URINE 1+ (NEGATIVE); SPECIFIC GRAVITY URINE 1.017 (1.005-1.030)
[2019-09-14] MEDS: METHYLPREDNISOLONE SOD SUCC 500 MG in SODIUM CHLORIDE 0.9% 100 ML IV SCH ×3 (00:09→16:24)
[2019-09-14] MEDS ORDERED: DEXTROSE 50% WATER 50ML SYRINGE IV ONE (00:15)
[2019-09-14 00:33] LABS: BG CARBOXYHEMOGLOBIN 0.3 % (0.5-1.5); BG DEOXYHEMOGLOBIN 1.1 % (0.0-5.0); BG FRACTION INSPIRED OXYGEN 40; BG METHEMOGLOBIN 0.2 % (0.0-1.5); BG OXYGEN SATURATION 98.9 % (92.0-98.5); BG OXYHEMOGLOBIN 98.4 % (94.0-97.0); BG PCO2 47.1 mmHg (35.0-45.0); BG PH 7.407 (7.350-7.450); BG PO2 179.3 mmHg (75.0-100.0); BG SAMPLE SITE A-LINE; BG TOTAL HEMOGLOBIN 5.3 g/dL (12.0-18.0); BG VENT MODE APRV
[2019-09-14 00:38] LABS: HEMATOCRIT. 22.6 % (42.0-52.0); HEMOGLOBIN. 7.2 g/dL (14.0-18.0); MEAN CORPUSCULAR HEMOGLOBIN 23.7 pg (28.0-32.0); MEAN CORPUSCULAR VOLUME 74.1 fL (80.0-94.0); PLATELET 125 x1000/uL (130-400); RED BLOOD CELL COUNT 3.05 mill/uL (4.7-6.1)
[2019-09-14 00:46] LABS: INR 1.3; PARTIAL THROMBOPLASTIN TIME 32.6 sec (23.4-31.0); PROTHROMBIN TIME 13.7 sec (9.6-11.0)
[2019-09-14 01:07] LABS: PHOSPHORUS 3.2 mg/dL (2.5-4.9)
[2019-09-14 01:13] LABS: CREATINE KINASE MB FRACTION 34.1 ng/mL (0.5-3.6)
[2019-09-14] MEDS: FUROSEMIDE 40MG/4ML VIAL IVP SCH ×4 (01:55→19:58)
[2019-09-14] MEDS: POTASSIUM CHLORIDE IV SCH (01:56)
[2019-09-14] MEDS: INSULIN REGULAR IV SCH (01:56)
[2019-09-14] MEDS: [UNRECOGNIZED DRUG - OTHER] IV SCH (01:56)
[2019-09-14] MEDS: ACETAZOLAMIDE SODIUM 500MG/VIAL IV SCH ×6 (02:14→21:38)
[2019-09-14] MEDS: PIPERACILLIN/TAZOBACTAM 3.375 G in DEXT 5% WATER 100 ML IV SCH ×3 (04:54→19:58)
[2019-09-14] MEDS ORDERED: ALBUMIN HUMAN 25GM/100ML (25%) IV SCH (05:00)
[2019-09-14] MEDS ORDERED: ALBUMIN HUMAN 12.5GM/50ML (25%) IV SCH (05:00)
[2019-09-14 05:41] LABS: MEAN CORPUSCULAR HEMOGLOBIN 23.8 pg (28.0-32.0); MEAN CORPUSCULAR VOLUME 75.2 fL (80.0-94.0); MEAN PLATELET VOLUME 10.1 fl (7.4-10.4); PLATELET 126 x1000/uL (130-400); RED BLOOD CELL COUNT 2.79 mill/uL (4.7-6.1); RED CELL DISTRIBUTION WIDTH 27.9 % (11.6-14.6)
[2019-09-14 05:47] LABS: CHLORIDE 114 mEq/L (98-107)
[2019-09-14 05:48] LABS: INR 1.3; PARTIAL THROMBOPLASTIN TIME 37.1 sec (23.4-31.0)
[2019-09-14 05:55] LABS: AMYLASE 144 IU/L (25-115)
[2019-09-14 05:59] LABS: CREATINE KINASE 910 IU/L (39-308); CREATINE KINASE MB FRACTION 25.3 ng/mL (0.5-3.6)
[2019-09-14] MEDS: THIAMINE HCL 100 MG in SODIUM CHLORIDE 0.9% 50 ML IV SCH ×3 (05:59→21:38)
[2019-09-14 06:18] LABS: BG CARBOXYHEMOGLOBIN 0.4 % (0.5-1.5); BG DEOXYHEMOGLOBIN 1.5 % (0.0-5.0); BG FRACTION INSPIRED OXYGEN 40; BG HCO3 ACT 27.7 mmol/L (22.0-26.0); BG METHEMOGLOBIN 0.2 % (0.0-1.5); BG OXYGEN SATURATION 98.5 % (92.0-98.5); BG OXYHEMOGLOBIN 97.9 % (94.0-97.0); BG PCO2 50.1 mmHg (35.0-45.0); BG PH 7.361 (7.350-7.450); BG PO2 185.1 mmHg (75.0-100.0); BG SAMPLE SITE A-LINE; BG TOTAL HEMOGLOBIN 7.3 g/dL (12.0-18.0); BG VENT MODE APRV
[2019-09-14 06:50] LABS: HEMOGLOBIN. 6.6 g/dL (14.0-18.0)
[2019-09-14] MEDS ORDERED: KCL 20MEQ/100ML PREMIX 100 ML IV SCH (07:00)
[2019-09-14] MEDS: VANCOMYCIN 500 MG PREMIX 100 ML IV SCH ×2 (08:04→19:58)
[2019-09-14] MEDS: INSULIN REGULAR (DRIP) 100 UNITS in SODIUM CHLORIDE 0.9% 99 ML IV SCH (08:06)
[2019-09-14 08:16] LABS: CLARITY URINE CLOUDY (CLEAR); COLOR URINE DK YELLOW (YELLOW); KETONES URINE NEGATIVE (NEGATIVE); LEUKOCYTE ESTERASE URINE TRACE (NEGATIVE); NITRITE URINE NEGATIVE (NEGATIVE); OCCULT BLOOD URINE TRACE (NEGATIVE); PH URINE 5.5 (4.5-8.0); PROTEIN URINE 1+ (NEGATIVE); SPECIFIC GRAVITY URINE 1.021 (1.005-1.030)
[2019-09-14] MEDS: LEVOTHYROXINE SODIUM 200 MCG in SODIUM CHLORIDE 0.9% 500 ML IV SCH (11:47)
[2019-09-14 12:24] LABS: BG BASE EXCESS 3.3 mmol/L (-2.0-2.0); BG CARBOXYHEMOGLOBIN 0.3 % (0.5-1.5); BG DEOXYHEMOGLOBIN 1.2 % (0.0-5.0); BG FRACTION INSPIRED OXYGEN 40; BG METHEMOGLOBIN 0.1 % (0.0-1.5); BG OXYGEN SATURATION 98.8 % (92.0-98.5); BG OXYHEMOGLOBIN 98.4 % (94.0-97.0); BG PCO2 50.2 mmHg (35.0-45.0); BG PO2 184.8 mmHg (75.0-100.0); BG SAMPLE SITE A-LINE; BG TOTAL HEMOGLOBIN 8.9 g/dL (12.0-18.0); BG VENT MODE APRV
[2019-09-14 12:49] LABS: HEMATOCRIT. 25.9 % (42.0-52.0); HEMOGLOBIN. 8.2 g/dL (14.0-18.0); MEAN CORPUSCULAR HEMOGLOBIN 24.4 pg (28.0-32.0); MEAN CORPUSCULAR VOLUME 77.4 fL (80.0-94.0); MEAN PLATELET VOLUME 10.4 fl (7.4-10.4); PLATELET 156 x1000/uL (130-400); RED BLOOD CELL COUNT 3.35 mill/uL (4.7-6.1); RED CELL DISTRIBUTION WIDTH 28.7 % (11.6-14.6)
[2019-09-14 12:57] LABS: PHOSPHORUS 3.2 mg/dL (2.5-4.9)
[2019-09-14 13:00] LABS: CREATINE KINASE MB FRACTION 21.6 ng/mL (0.5-3.6)
[2019-09-14 13:01] LABS: INR 1.4; PARTIAL THROMBOPLASTIN TIME 35.9 sec (23.4-31.0)
[2019-09-14] MEDS: VASOPRESSIN 10 UNIT in SODIUM CHLORIDE 0.9% 99.5 ML IV PRN (14:25)
[2019-09-14 15:00] LABS: PLATELET ESTIMATE SLIGHTLY DECREASED
[2019-09-14 15:06] LABS: PLATELET ESTIMATE SLIGHTLY DECREASED
[2019-09-14 15:08] LABS: CLARITY URINE CLEAR (CLEAR); COLOR URINE DARK YELLOW (YELLOW); KETONES URINE NEGATIVE (NEGATIVE); LEUKOCYTE ESTERASE URINE NEGATIVE (NEGATIVE); NITRITE URINE NEGATIVE (NEGATIVE); OCCULT BLOOD URINE 2+ (NEGATIVE); PROTEIN URINE 1+ (NEGATIVE); SPECIFIC GRAVITY URINE 1.021 (1.005-1.030)
[2019-09-14 15:12] LABS: PLATELET ESTIMATE NORMAL
[2019-09-14 18:05] LABS: BG BASE EXCESS 2.8 mmol/L (-2.0-2.0); BG CARBOXYHEMOGLOBIN 0.3 % (0.5-1.5); BG DEOXYHEMOGLOBIN 1.2 % (0.0-5.0); BG FRACTION INSPIRED OXYGEN 40; BG HCO3 ACT 28.7 mmol/L (22.0-26.0); BG METHEMOGLOBIN 0.3 % (0.0-1.5); BG OXYGEN SATURATION 98.8 % (92.0-98.5); BG OXYHEMOGLOBIN 98.2 % (94.0-97.0); BG PCO2 51.4 mmHg (35.0-45.0); BG PH 7.365 (7.350-7.450); BG PO2 183.1 mmHg (75.0-100.0); BG SAMPLE SITE A-LINE; BG TOTAL HEMOGLOBIN 8.7 g/dL (12.0-18.0); BG VENT MODE VENT - APRV
[2019-09-14 19:57] LABS: BASOPHILS % 0.1 % (0.0-2.0); HEMATOCRIT. 27.3 % (42.0-52.0); HEMOGLOBIN. 8.5 g/dL (14.0-18.0); LYMPHOCYTES % 9.6 % (20.0-50.0); MEAN CORPUSCULAR VOLUME 77.3 fL (80.0-94.0); MEAN PLATELET VOLUME 10.3 fl (7.4-10.4); MONOCYTES % 4.5 % (2.0-8.0); NEUTROPHILS % 85.8 % (40.0-76.0); PLATELET 132 x1000/uL (130-400); RED BLOOD CELL COUNT 3.53 mill/uL (4.7-6.1)
[2019-09-14 19:59] LABS: INR 1.6; PARTIAL THROMBOPLASTIN TIME 33.9 sec (23.4-31.0); PROTHROMBIN TIME 16.1 sec (9.6-11.0)
[2019-09-14 21:15] LABS: CLARITY URINE CLEAR (CLEAR); COLOR URINE DARK YELLOW (YELLOW); KETONES URINE NEGATIVE (NEGATIVE); LEUKOCYTE ESTERASE URINE TRACE (NEGATIVE); NITRITE URINE NEGATIVE (NEGATIVE); OCCULT BLOOD URINE 1+ (NEGATIVE); PH URINE 6.5 (4.5-8.0); PROTEIN URINE 1+ (NEGATIVE)
[2019-09-14 21:17] LABS: CLARITY URINE CLEAR (CLEAR); COLOR URINE DARK YELLOW (YELLOW); KETONES URINE NEGATIVE (NEGATIVE); LEUKOCYTE ESTERASE URINE NEGATIVE (NEGATIVE); NITRITE URINE NEGATIVE (NEGATIVE); OCCULT BLOOD URINE 1+ (NEGATIVE); PROTEIN URINE 1+ (NEGATIVE)
[2019-09-14] MEDS ORDERED: LABETALOL 5MG/ML SYR 20 MG/4 ML SYRINGE IV NR (21:45)
[2019-09-15] VITALS (100 sets, daily range): BP systolic 114–197; BP diastolic 53–127
[2019-09-15] MEDS: INSULIN REGULAR (DRIP) 100 UNITS in SODIUM CHLORIDE 0.9% 99 ML IV SCH ×2 (00:01→13:44)
[2019-09-15] MEDS: METHYLPREDNISOLONE SOD SUCC 500 MG in SODIUM CHLORIDE 0.9% 100 ML IV SCH ×4 (00:01→23:37)
[2019-09-15 00:46] LABS: BG BASE EXCESS -0.5 mmol/L (-2.0-2.0); BG CARBOXYHEMOGLOBIN 0.3 % (0.5-1.5); BG FRACTION INSPIRED OXYGEN 40; BG HCO3 ACT 25.6 mmol/L (22.0-26.0); BG METHEMOGLOBIN 0.1 % (0.0-1.5); BG OXYHEMOGLOBIN 98.6 % (94.0-97.0); BG PCO2 48.1 mmHg (35.0-45.0); BG PH 7.344 (7.350-7.450); BG PO2 199.7 mmHg (75.0-100.0); BG SAMPLE SITE A-LINE; BG VENT MODE APRVC
[2019-09-15 00:56] LABS: HEMATOCRIT. 25.8 % (42.0-52.0); HEMOGLOBIN. 8.1 g/dL (14.0-18.0); MEAN CORPUSCULAR HEMOGLOBIN 24.5 pg (28.0-32.0); MEAN CORPUSCULAR VOLUME 77.9 fL (80.0-94.0); MEAN PLATELET VOLUME 10.3 fl (7.4-10.4); PLATELET 154 x1000/uL (130-400); RED BLOOD CELL COUNT 3.32 mill/uL (4.7-6.1); RED CELL DISTRIBUTION WIDTH 29.4 % (11.6-14.6)
[2019-09-15 01:22] LABS: CLARITY URINE CLEAR (CLEAR); COLOR URINE DARK YELLOW (YELLOW); KETONES URINE NEGATIVE (NEGATIVE); LEUKOCYTE ESTERASE URINE TRACE (NEGATIVE); NITRITE URINE NEGATIVE (NEGATIVE); OCCULT BLOOD URINE NEGATIVE (NEGATIVE); PROTEIN URINE TRACE (NEGATIVE); SPECIFIC GRAVITY URINE 1.022 (1.005-1.030)
[2019-09-15] MEDS: VASOPRESSIN 10 UNIT in SODIUM CHLORIDE 0.9% 99.5 ML IV PRN ×4 (01:28→13:41)
[2019-09-15 01:39] LABS: PHOSPHORUS 6.9 mg/dL (2.5-4.9)
[2019-09-15 01:41] LABS: CREATINE KINASE MB FRACTION 12.7 ng/mL (0.5-3.6)
[2019-09-15] MEDS: FUROSEMIDE 40MG/4ML VIAL IVP SCH ×4 (01:52→20:42)
[2019-09-15] MEDS ORDERED: KCL 20MEQ/100ML PREMIX 100 ML IV SCH ×3 (02:00→17:00)
[2019-09-15 02:10] LABS: INR 1.6; PARTIAL THROMBOPLASTIN TIME 38.1 sec (23.4-31.0); PROTHROMBIN TIME 16.7 sec (9.6-11.0)
[2019-09-15] MEDS: PIPERACILLIN/TAZOBACTAM 3.375 G in DEXT 5% WATER 100 ML IV SCH ×3 (03:53→20:43)
[2019-09-15] MEDS: THIAMINE HCL 100 MG in SODIUM CHLORIDE 0.9% 50 ML IV SCH ×3 (05:27→21:42)
[2019-09-15] MEDS ORDERED: ACETAZOLAMIDE SODIUM 500MG/VIAL IV NR (05:54)
[2019-09-15 06:05] LABS: BG BASE EXCESS 1.7 mmol/L (-2.0-2.0); BG CARBOXYHEMOGLOBIN 0.1 % (0.5-1.5); BG DEOXYHEMOGLOBIN 0.3 % (0.0-5.0); BG FRACTION INSPIRED OXYGEN 100; BG HCO3 ACT 28.8 mmol/L (22.0-26.0); BG METHEMOGLOBIN 0.3 % (0.0-1.5); BG OXYGEN SATURATION 99.7 % (92.0-98.5); BG OXYHEMOGLOBIN 99.3 % (94.0-97.0); BG PCO2 56.7 mmHg (35.0-45.0); BG PH 7.323 (7.350-7.450); BG SAMPLE SITE A-LINE; BG TOTAL HEMOGLOBIN 12.4 g/dL (12.0-18.0); BG VENT MODE APRV
[2019-09-15 06:27] LABS: CLARITY URINE CLEAR (CLEAR); COLOR URINE YELLOW (YELLOW); HEMATOCRIT. 24.8 % (42.0-52.0); HEMOGLOBIN. 7.7 g/dL (14.0-18.0); KETONES URINE NEGATIVE (NEGATIVE); LEUKOCYTE ESTERASE URINE NEGATIVE (NEGATIVE); MEAN CORPUSCULAR VOLUME 77.6 fL (80.0-94.0); MEAN PLATELET VOLUME 10.1 fl (7.4-10.4); NITRITE URINE NEGATIVE (NEGATIVE); OCCULT BLOOD URINE 1+ (NEGATIVE); PLATELET 148 x1000/uL (130-400); PROTEIN URINE TRACE (NEGATIVE); RED CELL DISTRIBUTION WIDTH 29.4 % (11.6-14.6); SPECIFIC GRAVITY URINE 1.019 (1.005-1.030)
[2019-09-15 06:32] LABS: INR 1.7; PROTHROMBIN TIME 17.9 sec (9.6-11.0)
[2019-09-15 06:41] LABS: CREATINE KINASE MB FRACTION 11.8 ng/mL (0.5-3.6)
[2019-09-15] MEDS ORDERED: POTASSIUM CHLORIDE 20MEQ/PACKET NG NR (06:48)
[2019-09-15 07:09] LABS: NUCLEATED RED BLOOD CELLS 2 /100 WBC; PLATELET ESTIMATE NORMAL
[2019-09-15] MEDS: KCL 20MEQ/100ML PREMIX 100 ML IV SCH ×2 (08:27→10:20)
[2019-09-15] MEDS: VANCOMYCIN 500 MG PREMIX 100 ML IV SCH ×2 (08:27→20:42)
[2019-09-15 11:21] LABS: PLATELET ESTIMATE NORMAL
[2019-09-15 12:14] LABS: BG BASE EXCESS 1.2 mmol/L (-2.0-2.0); BG CARBOXYHEMOGLOBIN 0.3 % (0.5-1.5); BG DEOXYHEMOGLOBIN 1.8 % (0.0-5.0); BG FLOW(L/min) 0.75 L/min; BG FRACTION INSPIRED OXYGEN 30; BG HCO3 ACT 27.4 mmol/L (22.0-26.0); BG METHEMOGLOBIN 0.1 % (0.0-1.5); BG OXYGEN SATURATION 98.2 % (92.0-98.5); BG OXYHEMOGLOBIN 97.8 % (94.0-97.0); BG PCO2 52.5 mmHg (35.0-45.0); BG PH 7.336 (7.350-7.450); BG PO2 138.6 mmHg (75.0-100.0); BG SAMPLE SITE A-LINE; BG TOTAL HEMOGLOBIN 8.8 g/dL (12.0-18.0); BG VENT MODE VENT - APRV
[2019-09-15] MEDS: LABETALOL 5MG/ML SYR 20 MG/4 ML SYRINGE IV PRN ×3 (12:23→13:13)
[2019-09-15 12:46] LABS: CLARITY URINE CLEAR (CLEAR); COLOR URINE YELLOW (YELLOW); KETONES URINE NEGATIVE (NEGATIVE); LEUKOCYTE ESTERASE URINE NEGATIVE (NEGATIVE); NITRITE URINE NEGATIVE (NEGATIVE); OCCULT BLOOD URINE TRACE (NEGATIVE); PH URINE 7.5 (4.5-8.0); PROTEIN URINE TRACE (NEGATIVE); SPECIFIC GRAVITY URINE 1.016 (1.005-1.030); UROBILINOGEN URINE 0.2 E.U./dL (0.2-1.0)
[2019-09-15 13:05] LABS: HEMATOCRIT. 26.1 % (42.0-52.0); HEMOGLOBIN. 8.3 g/dL (14.0-18.0); MEAN CORPUSCULAR HEMOGLOBIN 24.7 pg (28.0-32.0); MEAN CORPUSCULAR VOLUME 78.1 fL (80.0-94.0); MEAN PLATELET VOLUME 10.3 fl (7.4-10.4); PLATELET 162 x1000/uL (130-400); RED BLOOD CELL COUNT 3.34 mill/uL (4.7-6.1); RED CELL DISTRIBUTION WIDTH 29.4 % (11.6-14.6)
[2019-09-15 13:10] LABS: INR 1.8; PROTHROMBIN TIME 18.4 sec (9.6-11.0)
[2019-09-15] MEDS ORDERED: NICARDIPINE 40MG/200ML PREMIX 200 ML IV PRN (13:15)
[2019-09-15 13:21] LABS: PHOSPHORUS 4.8 mg/dL (2.5-4.9)
[2019-09-15 13:23] LABS: CREATINE KINASE MB FRACTION 11.7 ng/mL (0.5-3.6)
[2019-09-15 13:45] LABS: PLATELET ESTIMATE NORMAL
[2019-09-15] MEDS ORDERED: DOBUTAMINE 250MG PREMIX 250 ML IV SCH (16:00)
[2019-09-15] MEDS ORDERED: KCL 20MEQ/100ML PREMIX 100 ML IV NR ×3 (16:00→19:00)
[2019-09-15 17:34] LABS: BG BASE EXCESS 0.2 mmol/L (-2.0-2.0); BG CARBOXYHEMOGLOBIN 0.1 % (0.5-1.5); BG DEOXYHEMOGLOBIN 1.3 % (0.0-5.0); BG FRACTION INSPIRED OXYGEN 40; BG HCO3 ACT 27.9 mmol/L (22.0-26.0); BG METHEMOGLOBIN 0.2 % (0.0-1.5); BG OXYGEN SATURATION 98.7 % (92.0-98.5); BG OXYHEMOGLOBIN 98.4 % (94.0-97.0); BG PCO2 63.7 mmHg (35.0-45.0); BG PH 7.259 (7.350-7.450); BG PO2 176.6 mmHg (75.0-100.0); BG SAMPLE SITE A-LINE; BG TIDAL VOLUME(mL) 600 mL; BG TOTAL HEMOGLOBIN 8.5 g/dL (12.0-18.0); BG VENT MODE VENT - A/C PRVC; BG VENT RATE 11 set
[2019-09-15] MEDS: ERYTHROMYCIN 250MG TABLET PO SCH ×2 (17:52→23:39)
[2019-09-15 17:59] LABS: BG DEOXYHEMOGLOBIN 0.4 % (0.0-5.0); BG FRACTION INSPIRED OXYGEN 100; BG HCO3 ACT 27.8 mmol/L (22.0-26.0); BG METHEMOGLOBIN 0.3 % (0.0-1.5); BG OXYGEN SATURATION 99.6 % (92.0-98.5); BG OXYHEMOGLOBIN 99.3 % (94.0-97.0); BG PCO2 57.2 mmHg (35.0-45.0); BG PH 7.305 (7.350-7.450); BG PO2 589.8 mmHg (75.0-100.0); BG SAMPLE SITE A-LINE; BG TIDAL VOLUME(mL) 600 mL; BG TOTAL HEMOGLOBIN 8.9 g/dL (12.0-18.0); BG VENT MODE VENT - A/C PRVC; BG VENT RATE 15 set
[2019-09-15] MEDS ORDERED: INSULIN REGULAR (HUMULIN R) 300UNITS/3ML IV STA (18:11)
[2019-09-15] MEDS ORDERED: NICARDIPINE 40MG/200ML PREMIX 200 ML IV SCH (18:45)
[2019-09-15 18:55] LABS: INR 1.7; PARTIAL THROMBOPLASTIN TIME 36.9 sec (23.4-31.0); PROTHROMBIN TIME 18.7 sec (9.6-11.0)
[2019-09-15 18:57] LABS: PHOSPHORUS 5.7 mg/dL (2.5-4.9)
[2019-09-15 18:58] LABS: CREATINE KINASE MB FRACTION 11.8 ng/mL (0.5-3.6)
[2019-09-15 18:58] LABS: CLARITY URINE CLEAR (CLEAR); COLOR URINE YELLOW (YELLOW); KETONES URINE NEGATIVE (NEGATIVE); LEUKOCYTE ESTERASE URINE NEGATIVE (NEGATIVE); NITRITE URINE NEGATIVE (NEGATIVE); OCCULT BLOOD URINE TRACE (NEGATIVE); PH URINE 7.5 (4.5-8.0); PROTEIN URINE TRACE (NEGATIVE); SPECIFIC GRAVITY URINE 1.017 (1.005-1.030); UROBILINOGEN URINE 0.2 E.U./dL (0.2-1.0)
[2019-09-15 19:03] LABS: HEMOGLOBIN. 7.9 g/dL (14.0-18.0); MEAN CORPUSCULAR HEMOGLOBIN 23.7 pg (28.0-32.0); MEAN CORPUSCULAR VOLUME 77.9 fL (80.0-94.0); MEAN PLATELET VOLUME 9.9 fl (7.4-10.4); PLATELET 164 x1000/uL (130-400); RED BLOOD CELL COUNT 3.34 mill/uL (4.7-6.1); RED CELL DISTRIBUTION WIDTH 29.7 % (11.6-14.6)
[2019-09-15 19:53] LABS: PLATELET ESTIMATE NORMAL
[2019-09-16] VITALS (93 sets, daily range): BP systolic 84–194; BP diastolic 40–120
[2019-09-16 00:15] LABS: BG BASE EXCESS -0.1 mmol/L (-2.0-2.0); BG CARBOXYHEMOGLOBIN 0.2 % (0.5-1.5); BG DEOXYHEMOGLOBIN 1.8 % (0.0-5.0); BG FRACTION INSPIRED OXYGEN 30%; BG HCO3 ACT 26.1 mmol/L (22.0-26.0); BG METHEMOGLOBIN 0.2 % (0.0-1.5); BG OXYGEN SATURATION 98.2 % (92.0-98.5); BG OXYHEMOGLOBIN 97.8 % (94.0-97.0); BG PCO2 50.9 mmHg (35.0-45.0); BG PH 7.327 (7.350-7.450); BG PO2 134.4 mmHg (75.0-100.0); BG SAMPLE SITE A-LINE; BG TOTAL HEMOGLOBIN 8.1 g/dL (12.0-18.0); BG VENT MODE VENT - PCV
[2019-09-16 01:16] LABS: HEMATOCRIT. 26.2 % (42.0-52.0); HEMOGLOBIN. 8.2 g/dL (14.0-18.0); MEAN CORPUSCULAR HEMOGLOBIN 24.3 pg (28.0-32.0); MEAN CORPUSCULAR VOLUME 77.8 fL (80.0-94.0); MEAN PLATELET VOLUME 10.3 fl (7.4-10.4); PLATELET 189 x1000/uL (130-400); RED BLOOD CELL COUNT 3.37 mill/uL (4.7-6.1); RED CELL DISTRIBUTION WIDTH 29.7 % (11.6-14.6)
[2019-09-16 01:18] LABS: PHOSPHORUS 4.2 mg/dL (2.5-4.9)
[2019-09-16] MEDS: VASOPRESSIN 40 UNIT in SODIUM CHLORIDE 0.9% 98 ML IV PRN ×2 (01:18→14:41)
[2019-09-16 01:21] LABS: CREATINE KINASE MB FRACTION 11.7 ng/mL (0.5-3.6)
[2019-09-16] MEDS: FUROSEMIDE 40MG/4ML VIAL IVP SCH ×4 (01:55→19:36)
[2019-09-16 02:10] LABS: INR 1.7; PROTHROMBIN TIME 18.6 sec (9.6-11.0)
[2019-09-16 02:17] LABS: CLARITY URINE CLEAR (CLEAR); COLOR URINE YELLOW (YELLOW); KETONES URINE NEGATIVE (NEGATIVE); LEUKOCYTE ESTERASE URINE NEGATIVE (NEGATIVE); NITRITE URINE NEGATIVE (NEGATIVE); OCCULT BLOOD URINE NEGATIVE (NEGATIVE); PROTEIN URINE TRACE (NEGATIVE); SPECIFIC GRAVITY URINE 1.018 (1.005-1.030); UROBILINOGEN URINE 0.2 E.U./dL (0.2-1.0)
[2019-09-16] MEDS: PIPERACILLIN/TAZOBACTAM 3.375 G in DEXT 5% WATER 100 ML IV SCH ×3 (04:04→19:36)
[2019-09-16] MEDS: INSULIN REGULAR (DRIP) 100 UNITS in SODIUM CHLORIDE 0.9% 99 ML IV SCH ×2 (04:41→18:38)
[2019-09-16] MEDS: THIAMINE HCL 100 MG in SODIUM CHLORIDE 0.9% 50 ML IV SCH ×3 (05:37→22:11)
[2019-09-16] MEDS: ERYTHROMYCIN 250MG TABLET PO SCH ×2 (05:38→13:09)
[2019-09-16 05:42] LABS: BG BASE EXCESS 0.5 mmol/L (-2.0-2.0); BG CARBOXYHEMOGLOBIN 0.3 % (0.5-1.5); BG DEOXYHEMOGLOBIN 1.4 % (0.0-5.0); BG FRACTION INSPIRED OXYGEN 40; BG HCO3 ACT 27.3 mmol/L (22.0-26.0); BG METHEMOGLOBIN 0.2 % (0.0-1.5); BG OXYGEN SATURATION 98.6 % (92.0-98.5); BG OXYHEMOGLOBIN 98.1 % (94.0-97.0); BG PH 7.306 (7.350-7.450); BG PO2 169.5 mmHg (75.0-100.0); BG SAMPLE SITE A-LINE; BG TIDAL VOLUME(mL) 500 mL; BG TOTAL HEMOGLOBIN 9.1 g/dL (12.0-18.0); BG VENT MODE VENT - PCV; BG VENT RATE 15 set
[2019-09-16 06:15] LABS: PHOSPHORUS 3.6 mg/dL (2.5-4.9)
[2019-09-16 06:17] LABS: CREATINE KINASE MB FRACTION 9.7 ng/mL (0.5-3.6)
[2019-09-16 06:19] LABS: BG BASE EXCESS -2.3 mmol/L (-2.0-2.0); BG CARBOXYHEMOGLOBIN 0.3 % (0.5-1.5); BG DEOXYHEMOGLOBIN 0.6 % (0.0-5.0); BG FRACTION INSPIRED OXYGEN 100; BG HCO3 ACT 24.7 mmol/L (22.0-26.0); BG METHEMOGLOBIN 0.2 % (0.0-1.5); BG OXYGEN SATURATION 99.4 % (92.0-98.5); BG OXYHEMOGLOBIN 98.9 % (94.0-97.0); BG PCO2 52.7 mmHg (35.0-45.0); BG PH 7.288 (7.350-7.450); BG PO2 513.2 mmHg (75.0-100.0); BG SAMPLE SITE A-LINE; BG TIDAL VOLUME(mL) 500 mL; BG TOTAL HEMOGLOBIN 10.5 g/dL (12.0-18.0); BG VENT MODE VENT - PCV; BG VENT RATE 15 set
[2019-09-16 06:21] LABS: CLARITY URINE CLEAR (CLEAR); COLOR URINE YELLOW (YELLOW); KETONES URINE NEGATIVE (NEGATIVE); LEUKOCYTE ESTERASE URINE NEGATIVE (NEGATIVE); NITRITE URINE NEGATIVE (NEGATIVE); OCCULT BLOOD URINE NEGATIVE (NEGATIVE); PROTEIN URINE TRACE (NEGATIVE); SPECIFIC GRAVITY URINE 1.019 (1.005-1.030); UROBILINOGEN URINE 0.2 E.U./dL (0.2-1.0)
[2019-09-16 06:52] LABS: BG BASE EXCESS 1.9 mmol/L (-2.0-2.0); BG CARBOXYHEMOGLOBIN 0.7 % (0.5-1.5); BG DEOXYHEMOGLOBIN 2.1 % (0.0-5.0); BG FRACTION INSPIRED OXYGEN 30; BG HCO3 ACT 27.8 mmol/L (22.0-26.0); BG METHEMOGLOBIN 0.1 % (0.0-1.5); BG OXYGEN SATURATION 97.9 % (92.0-98.5); BG OXYHEMOGLOBIN 97.1 % (94.0-97.0); BG PCO2 50.5 mmHg (35.0-45.0); BG PH 7.358 (7.350-7.450); BG SAMPLE SITE A-LINE; BG VENT MODE VENT - PCV
[2019-09-16 07:09] LABS: PARTIAL THROMBOPLASTIN TIME 36.6 sec (23.4-31.0); PROTHROMBIN TIME 19.9 sec (9.6-11.0)
[2019-09-16 07:22] LABS: HEMATOCRIT. 25.4 % (42.0-52.0); MEAN CORPUSCULAR HEMOGLOBIN 24.5 pg (28.0-32.0); MEAN CORPUSCULAR VOLUME 77.4 fL (80.0-94.0); PLATELET 177 x1000/uL (130-400); RED BLOOD CELL COUNT 3.28 mill/uL (4.7-6.1); RED CELL DISTRIBUTION WIDTH 29.8 % (11.6-14.6)
[2019-09-16] MEDS: METHYLPREDNISOLONE SOD SUCC 500 MG in SODIUM CHLORIDE 0.9% 100 ML IV SCH ×2 (08:36→16:15)
[2019-09-16] MEDS: VANCOMYCIN 500 MG PREMIX 100 ML IV SCH ×2 (08:38→19:52)
[2019-09-16] MEDS ORDERED: KCL 20MEQ/100ML PREMIX 100 ML IV SCH (10:00)
[2019-09-16 10:35] LABS: NUCLEATED RED BLOOD CELLS 1 /100 WBC
[2019-09-16 10:36] LABS: PLATELET ESTIMATE NORMAL
[2019-09-16 10:43] LABS: PLATELET ESTIMATE NORMAL
[2019-09-16 12:24] LABS: BG FRACTION INSPIRED OXYGEN 30; BG HCO3 ACT 13.9 mmol/L (22.0-26.0); BG PCO2 23.1 mmHg (35.0-45.0); BG PH 7.398 (7.350-7.450); BG PO2 140.9 mmHg (75.0-100.0); BG SAMPLE SITE A-LINE; BG TOTAL HEMOGLOBIN < 4.5 g/dL (12.0-18.0); BG VENT MODE VENT- PRVC
[2019-09-16 12:37] LABS: HEMATOCRIT. 25.2 % (42.0-52.0); HEMOGLOBIN. 7.9 g/dL (14.0-18.0); MEAN CORPUSCULAR HEMOGLOBIN 24.1 pg (28.0-32.0); MEAN CORPUSCULAR VOLUME 76.7 fL (80.0-94.0); PLATELET 248 x1000/uL (130-400); RED BLOOD CELL COUNT 3.28 mill/uL (4.7-6.1); RED CELL DISTRIBUTION WIDTH 29.5 % (11.6-14.6)
[2019-09-16 12:51] LABS: CHLORIDE 119 mEq/L (98-107)
[2019-09-16 12:57] LABS: PHOSPHORUS 2.8 mg/dL (2.5-4.9)
[2019-09-16 13:00] LABS: CREATINE KINASE 441 IU/L (39-308)
[2019-09-16 13:03] LABS: NUCLEATED RED BLOOD CELLS 1 /100 WBC; PLATELET ESTIMATE NORMAL
[2019-09-16 13:05] LABS: AMYLASE 216 IU/L (25-115)
[2019-09-16] MEDS ORDERED: NICARDIPINE 50 MG in SODIUM CHLORIDE 0.9% 230 ML IV PRN (13:30)
[2019-09-16 14:14] LABS: CLARITY URINE CLEAR (CLEAR); COLOR URINE YELLOW (YELLOW); KETONES URINE NEGATIVE (NEGATIVE); LEUKOCYTE ESTERASE URINE NEGATIVE (NEGATIVE); NITRITE URINE NEGATIVE (NEGATIVE); OCCULT BLOOD URINE NEGATIVE (NEGATIVE); PROTEIN URINE TRACE (NEGATIVE); SPECIFIC GRAVITY URINE 1.021 (1.005-1.030)
[2019-09-16 14:28] LABS: PARTIAL THROMBOPLASTIN TIME 34.3 sec (23.4-31.0); PROTHROMBIN TIME 20.7 sec (9.6-11.0)
[2019-09-16 15:17] LABS: BG BASE EXCESS 1.8 mmol/L (-2.0-2.0); BG FRACTION INSPIRED OXYGEN 30; BG HCO3 ACT 27.5 mmol/L (22.0-26.0); BG PCO2 49.4 mmHg (35.0-45.0); BG PH 7.364 (7.350-7.450); BG PO2 130.4 mmHg (75.0-100.0); BG SAMPLE SITE A-LINE; BG TOTAL HEMOGLOBIN 8.7 g/dL (12.0-18.0); BG VENT MODE VENT - A/C
[2019-09-16] MEDS: ERYTHROMYCIN 250MG CAPSULE DR PO SCH (17:50)
[2019-09-16 18:18] LABS: BG BASE EXCESS 0.1 mmol/L (-2.0-2.0); BG CARBOXYHEMOGLOBIN 0.2 % (0.5-1.5); BG DEOXYHEMOGLOBIN 1.5 % (0.0-5.0); BG HCO3 ACT 27.2 mmol/L (22.0-26.0); BG METHEMOGLOBIN 0.3 % (0.0-1.5); BG OXYGEN SATURATION 98.5 % (92.0-98.5); BG PCO2 58.4 mmHg (35.0-45.0); BG PH 7.286 (7.350-7.450); BG PO2 171.4 mmHg (75.0-100.0); BG SAMPLE SITE A-LINE; BG TIDAL VOLUME(mL) 500 mL; BG TOTAL HEMOGLOBIN 8.9 g/dL (12.0-18.0); BG VENT MODE VENT - A/C; BG VENT RATE 11 set
[2019-09-16 18:59] LABS: HEMATOCRIT. 25.3 % (42.0-52.0); HEMOGLOBIN. 7.9 g/dL (14.0-18.0); MEAN CORPUSCULAR VOLUME 77.1 fL (80.0-94.0); MEAN PLATELET VOLUME 10.2 fl (7.4-10.4); PLATELET 242 x1000/uL (130-400); RED BLOOD CELL COUNT 3.28 mill/uL (4.7-6.1); RED CELL DISTRIBUTION WIDTH 30.1 % (11.6-14.6)
[2019-09-16 19:07] LABS: BG BASE EXCESS -0.9 mmol/L (-2.0-2.0); BG FRACTION INSPIRED OXYGEN 40; BG HCO3 ACT 24.7 mmol/L (22.0-26.0); BG OXYGEN SATURATION 98.5 % (92.0-98.5); BG OXYHEMOGLOBIN 98.1 % (94.0-97.0); BG PCO2 45.5 mmHg (35.0-45.0); BG PH 7.352 (7.350-7.450); BG PO2 173.5 mmHg (75.0-100.0); BG SAMPLE SITE A-LINE; BG TIDAL VOLUME(mL) 500 mL; BG TOTAL HEMOGLOBIN 8.3 g/dL (12.0-18.0); BG VENT MODE VENT - A/C; BG VENT RATE 15 set
[2019-09-16 19:08] LABS: BG CARBOXYHEMOGLOBIN 0.3 % (0.5-1.5); BG DEOXYHEMOGLOBIN 1.5 % (0.0-5.0); BG METHEMOGLOBIN 0.1 % (0.0-1.5)
[2019-09-16 19:21] LABS: INR 2.1; PARTIAL THROMBOPLASTIN TIME 33.6 sec (23.4-31.0); PROTHROMBIN TIME 21.4 sec (9.6-11.0)
[2019-09-16 19:22] LABS: PHOSPHORUS 3.7 mg/dL (2.5-4.9)
[2019-09-16 19:24] LABS: CREATINE KINASE MB FRACTION 6.6 ng/mL (0.5-3.6)
[2019-09-16 19:42] LABS: PLATELET ESTIMATE NORMAL
[2019-09-16 20:13] LABS: BG BASE EXCESS 1.5 mmol/L (-2.0-2.0); BG CARBOXYHEMOGLOBIN 0.3 % (0.5-1.5); BG DEOXYHEMOGLOBIN 0.4 % (0.0-5.0); BG FRACTION INSPIRED OXYGEN 100; BG HCO3 ACT 27.3 mmol/L (22.0-26.0); BG METHEMOGLOBIN 0.2 % (0.0-1.5); BG OXYGEN SATURATION 99.6 % (92.0-98.5); BG OXYHEMOGLOBIN 99.1 % (94.0-97.0); BG PCO2 49.5 mmHg (35.0-45.0); BG PH 7.359 (7.350-7.450); BG PO2 513.4 mmHg (75.0-100.0); BG SAMPLE SITE HEEL; BG TIDAL VOLUME(mL) 500 mL; BG TOTAL HEMOGLOBIN 7.6 g/dL (12.0-18.0); BG VENT MODE VENT - PCV; BG VENT RATE 15 set
[2019-09-16 20:45] LABS: CLARITY URINE CLEAR (CLEAR); COLOR URINE YELLOW (YELLOW); KETONES URINE NEGATIVE (NEGATIVE); LEUKOCYTE ESTERASE URINE NEGATIVE (NEGATIVE); NITRITE URINE NEGATIVE (NEGATIVE); OCCULT BLOOD URINE NEGATIVE (NEGATIVE); PROTEIN URINE TRACE (NEGATIVE); SPECIFIC GRAVITY URINE 1.022 (1.005-1.030); UROBILINOGEN URINE 0.2 E.U./dL (0.2-1.0)
[2019-09-17] VITALS (102 sets, daily range): BP systolic 96–213; BP diastolic 16–130
[2019-09-17] MEDS: METHYLPREDNISOLONE SOD SUCC 500 MG in SODIUM CHLORIDE 0.9% 100 ML IV SCH ×4 (00:03→23:42)
[2019-09-17] MEDS: ERYTHROMYCIN 250MG CAPSULE DR PO SCH ×5 (00:03→23:43)
[2019-09-17 00:29] LABS: BG CARBOXYHEMOGLOBIN 0.3 % (0.5-1.5); BG DEOXYHEMOGLOBIN 2.1 % (0.0-5.0); BG FRACTION INSPIRED OXYGEN 30; BG HCO3 ACT 27.4 mmol/L (22.0-26.0); BG OXYGEN SATURATION 97.9 % (92.0-98.5); BG OXYHEMOGLOBIN 97.6 % (94.0-97.0); BG PCO2 46.4 mmHg (35.0-45.0); BG PH 7.389 (7.350-7.450); BG PO2 124.6 mmHg (75.0-100.0); BG SAMPLE SITE A-LINE; BG TOTAL HEMOGLOBIN 10.3 g/dL (12.0-18.0); BG VENT MODE VENT - PCV
[2019-09-17 00:38] LABS: CLARITY URINE TURBID (CLEAR); COLOR URINE YELLOW (YELLOW); KETONES URINE NEGATIVE (NEGATIVE); LEUKOCYTE ESTERASE URINE NEGATIVE (NEGATIVE); NITRITE URINE NEGATIVE (NEGATIVE); OCCULT BLOOD URINE NEGATIVE (NEGATIVE); PH URINE 5.5 (4.5-8.0); PROTEIN URINE TRACE (NEGATIVE); SPECIFIC GRAVITY URINE 1.023 (1.005-1.030)
[2019-09-17 00:39] LABS: HEMATOCRIT. 30.9 % (42.0-52.0); HEMOGLOBIN. 10.1 g/dL (14.0-18.0); MEAN CORPUSCULAR HEMOGLOBIN 25.7 pg (28.0-32.0); MEAN CORPUSCULAR VOLUME 78.3 fL (80.0-94.0); MEAN PLATELET VOLUME 10.4 fl (7.4-10.4); PLATELET 198 x1000/uL (130-400); RED BLOOD CELL COUNT 3.95 mill/uL (4.7-6.1); RED CELL DISTRIBUTION WIDTH 28.1 % (11.6-14.6)
[2019-09-17 00:42] LABS: CHLORIDE 119 mEq/L (98-107)
[2019-09-17 00:45] LABS: INR 2.1; PARTIAL THROMBOPLASTIN TIME 32.8 sec (23.4-31.0); PROTHROMBIN TIME 20.9 sec (9.6-11.0)
[2019-09-17 00:46] LABS: AMYLASE 255 IU/L (25-115)
[2019-09-17 00:48] LABS: PHOSPHORUS 3.3 mg/dL (2.5-4.9)
[2019-09-17 00:50] LABS: CREATINE KINASE 260 IU/L (39-308); CREATINE KINASE MB FRACTION 5.6 ng/mL (0.5-3.6)
[2019-09-17] MEDS ORDERED: KCL 20MEQ/100ML PREMIX 100 ML IV SCH ×2 (02:00→03:00)
[2019-09-17] MEDS ORDERED: PHYTONADIONE 10 MG in DEXTROSE 5% WATER 50 ML IV SCH (02:00)
[2019-09-17] MEDS: FUROSEMIDE 40MG/4ML VIAL IVP SCH ×4 (02:10→21:38)
[2019-09-17 05:03] LABS: PLATELET ESTIMATE NORMAL
[2019-09-17] MEDS: PIPERACILLIN/TAZOBACTAM 3.375 G in DEXT 5% WATER 100 ML IV SCH ×3 (05:13→20:52)
[2019-09-17] MEDS: THIAMINE HCL 100 MG in SODIUM CHLORIDE 0.9% 50 ML IV SCH ×3 (05:37→22:23)
[2019-09-17 06:08] LABS: BG BASE EXCESS -0.3 mmol/L (-2.0-2.0); BG CARBOXYHEMOGLOBIN 0.1 % (0.5-1.5); BG DEOXYHEMOGLOBIN 2.6 % (0.0-5.0); BG FRACTION INSPIRED OXYGEN 30; BG HCO3 ACT 24.8 mmol/L (22.0-26.0); BG METHEMOGLOBIN 0.1 % (0.0-1.5); BG OXYGEN SATURATION 97.4 % (92.0-98.5); BG OXYHEMOGLOBIN 97.2 % (94.0-97.0); BG PCO2 42.4 mmHg (35.0-45.0); BG PH 7.385 (7.350-7.450); BG PO2 111.3 mmHg (75.0-100.0); BG SAMPLE SITE A-LINE; BG TOTAL HEMOGLOBIN 10.4 g/dL (12.0-18.0); BG VENT MODE VENT - PCV
[2019-09-17 06:22] LABS: HEMATOCRIT. 30.1 % (42.0-52.0); HEMOGLOBIN. 9.7 g/dL (14.0-18.0); MEAN CORPUSCULAR HEMOGLOBIN 25.4 pg (28.0-32.0); MEAN CORPUSCULAR VOLUME 78.3 fL (80.0-94.0); MEAN PLATELET VOLUME 10.3 fl (7.4-10.4); PLATELET 202 x1000/uL (130-400); RED BLOOD CELL COUNT 3.84 mill/uL (4.7-6.1)
[2019-09-17] MEDS: VASOPRESSIN 40 UNIT in SODIUM CHLORIDE 0.9% 98 ML IV PRN ×2 (06:22→22:22)
[2019-09-17 06:30] LABS: INR 1.8; PARTIAL THROMBOPLASTIN TIME 29.6 sec (23.4-31.0); PROTHROMBIN TIME 18.6 sec (9.6-11.0)
[2019-09-17 06:37] LABS: CREATINE KINASE MB FRACTION 4.1 ng/mL (0.5-3.6); PHOSPHORUS 3.3 mg/dL (2.5-4.9)
[2019-09-17 06:45] LABS: CLARITY URINE CLEAR (CLEAR); COLOR URINE YELLOW (YELLOW); KETONES URINE NEGATIVE (NEGATIVE); LEUKOCYTE ESTERASE URINE NEGATIVE (NEGATIVE); NITRITE URINE NEGATIVE (NEGATIVE); OCCULT BLOOD URINE NEGATIVE (NEGATIVE); PH URINE 6.5 (4.5-8.0); PROTEIN URINE TRACE (NEGATIVE); SPECIFIC GRAVITY URINE 1.021 (1.005-1.030)
[2019-09-17] MEDS: VANCOMYCIN 500 MG PREMIX 100 ML IV SCH ×2 (08:51→20:52)
[2019-09-17 09:36] LABS: BG BASE EXCESS 1.7 mmol/L (-2.0-2.0); BG CARBOXYHEMOGLOBIN 0.3 % (0.5-1.5); BG DEOXYHEMOGLOBIN 1.5 % (0.0-5.0); BG FRACTION INSPIRED OXYGEN 40; BG HCO3 ACT 27.7 mmol/L (22.0-26.0); BG METHEMOGLOBIN 0.2 % (0.0-1.5); BG OXYGEN SATURATION 98.5 % (92.0-98.5); BG PCO2 50.5 mmHg (35.0-45.0); BG PH 7.357 (7.350-7.450); BG PO2 170.1 mmHg (75.0-100.0); BG SAMPLE SITE A-LINE; BG TIDAL VOLUME(mL) 500 mL; BG TOTAL HEMOGLOBIN 9.7 g/dL (12.0-18.0); BG VENT MODE VENT - A/C PRVC; BG VENT RATE 15 set
[2019-09-17 10:15] LABS: BG BASE EXCESS 0.7 mmol/L (-2.0-2.0); BG CARBOXYHEMOGLOBIN 0.3 % (0.5-1.5); BG DEOXYHEMOGLOBIN 0.7 % (0.0-5.0); BG FRACTION INSPIRED OXYGEN 100; BG HCO3 ACT 26.6 mmol/L (22.0-26.0); BG METHEMOGLOBIN 0.3 % (0.0-1.5); BG OXYGEN SATURATION 99.3 % (92.0-98.5); BG OXYHEMOGLOBIN 98.7 % (94.0-97.0); BG PCO2 49.1 mmHg (35.0-45.0); BG PH 7.352 (7.350-7.450); BG SAMPLE SITE A-LINE; BG TIDAL VOLUME(mL) 500 mL; BG TOTAL HEMOGLOBIN 9.7 g/dL (12.0-18.0); BG VENT MODE AMBU BAG; BG VENT RATE 15 set
[2019-09-17] MEDS ORDERED: KCL 10MEQ/50ML PREMIX 200 ML IV PRN (11:45)
[2019-09-17 11:53] LABS: NUCLEATED RED BLOOD CELLS 1 /100 WBC; PLATELET ESTIMATE NORMAL
[2019-09-17 12:16] LABS: BG BASE EXCESS 1.4 mmol/L (-2.0-2.0); BG CARBOXYHEMOGLOBIN 0.3 % (0.5-1.5); BG DEOXYHEMOGLOBIN 2.4 % (0.0-5.0); BG FRACTION INSPIRED OXYGEN 30; BG HCO3 ACT 26.7 mmol/L (22.0-26.0); BG METHEMOGLOBIN 0.1 % (0.0-1.5); BG OXYGEN SATURATION 97.6 % (92.0-98.5); BG OXYHEMOGLOBIN 97.2 % (94.0-97.0); BG PCO2 45.2 mmHg (35.0-45.0); BG PH 7.389 (7.350-7.450); BG PO2 111.4 mmHg (75.0-100.0); BG SAMPLE SITE A-LINE; BG TOTAL HEMOGLOBIN 10.2 g/dL (12.0-18.0); BG VENT MODE VENT - APRV
[2019-09-17 13:34] LABS: HEMATOCRIT. 28.7 % (42.0-52.0); HEMOGLOBIN. 9.2 g/dL (14.0-18.0); MEAN CORPUSCULAR HEMOGLOBIN 25.1 pg (28.0-32.0); MEAN CORPUSCULAR VOLUME 78.8 fL (80.0-94.0); MEAN PLATELET VOLUME 10.6 fl (7.4-10.4); PLATELET 207 x1000/uL (130-400); RED BLOOD CELL COUNT 3.64 mill/uL (4.7-6.1); RED CELL DISTRIBUTION WIDTH 27.6 % (11.6-14.6)
[2019-09-17 13:39] LABS: CHLORIDE 114 mEq/L (98-107)
[2019-09-17 13:44] LABS: AMYLASE 253 IU/L (25-115)
[2019-09-17 13:47] LABS: PHOSPHORUS 4.3 mg/dL (2.5-4.9)
[2019-09-17 13:48] LABS: CREATINE KINASE MB FRACTION 3.3 ng/mL (0.5-3.6); INR 1.4; PARTIAL THROMBOPLASTIN TIME 27.3 sec (23.4-31.0); PROTHROMBIN TIME 14.6 sec (9.6-11.0)
[2019-09-17 13:55] LABS: CREATINE KINASE 180 IU/L (39-308)
[2019-09-17 14:11] LABS: PLATELET ESTIMATE NORMAL
[2019-09-17] MEDS: INSULIN REGULAR (DRIP) 100 UNITS in SODIUM CHLORIDE 0.9% 99 ML IV SCH (14:47)
[2019-09-17] MEDS ORDERED: KCL 20MEQ/100ML PREMIX 100 ML IV NR ×3 (15:30)
[2019-09-17 18:29] LABS: BG BASE EXCESS -1.4 mmol/L (-2.0-2.0); BG CARBOXYHEMOGLOBIN 0.3 % (0.5-1.5); BG DEOXYHEMOGLOBIN 2.3 % (0.0-5.0); BG FRACTION INSPIRED OXYGEN 30; BG HCO3 ACT 24.2 mmol/L (22.0-26.0); BG METHEMOGLOBIN 0.3 % (0.0-1.5); BG OXYGEN SATURATION 97.7 % (92.0-98.5); BG OXYHEMOGLOBIN 97.1 % (94.0-97.0); BG PCO2 44.5 mmHg (35.0-45.0); BG PH 7.353 (7.350-7.450); BG PO2 127.5 mmHg (75.0-100.0); BG SAMPLE SITE A-LINE; BG TOTAL HEMOGLOBIN 10.6 g/dL (12.0-18.0); BG VENT MODE VENT - APRV
[2019-09-17] MEDS ORDERED: MANNITOL 20% 500 ML IV ONE (19:37)
[2019-09-17] MEDS ORDERED: FUROSEMIDE 40MG/4ML VIAL ONE (19:37)
[2019-09-17 20:05] LABS: HEMATOCRIT. 27.5 % (42.0-52.0); MEAN PLATELET VOLUME 10.5 fl (7.4-10.4); PLATELET 202 x1000/uL (130-400); RED BLOOD CELL COUNT 3.48 mill/uL (4.7-6.1); RED CELL DISTRIBUTION WIDTH 28.1 % (11.6-14.6)
[2019-09-17 20:09] LABS: CHLORIDE 109 mEq/L (98-107)
[2019-09-17 20:13] LABS: AMYLASE 197 IU/L (25-115)
[2019-09-17 20:14] LABS: CLARITY URINE CLEAR (CLEAR); COLOR URINE YELLOW (YELLOW); KETONES URINE NEGATIVE (NEGATIVE); LEUKOCYTE ESTERASE URINE NEGATIVE (NEGATIVE); NITRITE URINE NEGATIVE (NEGATIVE); OCCULT BLOOD URINE NEGATIVE (NEGATIVE); PROTEIN URINE NEGATIVE (NEGATIVE); SPECIFIC GRAVITY URINE 1.021 (1.005-1.030); UROBILINOGEN URINE 0.2 E.U./dL (0.2-1.0)
[2019-09-17 20:14] LABS: INR 1.4; PARTIAL THROMBOPLASTIN TIME 26.3 sec (23.4-31.0); PROTHROMBIN TIME 14.3 sec (9.6-11.0)
[2019-09-17 20:15] LABS: PHOSPHORUS 4.4 mg/dL (2.5-4.9)
[2019-09-17 20:18] LABS: CREATINE KINASE 161 IU/L (39-308); CREATINE KINASE MB FRACTION 3.1 ng/mL (0.5-3.6)
[2019-09-17 20:46] LABS: PLATELET ESTIMATE NORMAL
[2019-09-17 21:14] LABS: BG BASE EXCESS -1.4 mmol/L (-2.0-2.0); BG CARBOXYHEMOGLOBIN 0.3 % (0.5-1.5); BG DEOXYHEMOGLOBIN 1.6 % (0.0-5.0); BG FRACTION INSPIRED OXYGEN 40; BG HCO3 ACT 24.4 mmol/L (22.0-26.0); BG METHEMOGLOBIN 0.2 % (0.0-1.5); BG OXYGEN SATURATION 98.4 % (92.0-98.5); BG OXYHEMOGLOBIN 97.9 % (94.0-97.0); BG PCO2 46.1 mmHg (35.0-45.0); BG PH 7.342 (7.350-7.450); BG PO2 174.6 mmHg (75.0-100.0); BG SAMPLE SITE A-LINE; BG TIDAL VOLUME(mL) 500 mL; BG TOTAL HEMOGLOBIN 10.3 g/dL (12.0-18.0); BG VENT MODE AC/PRVC; BG VENT RATE 15 set
[2019-09-17 21:44] LABS: BG BASE EXCESS -1.4 mmol/L (-2.0-2.0); BG CARBOXYHEMOGLOBIN 0.3 % (0.5-1.5); BG DEOXYHEMOGLOBIN 0.8 % (0.0-5.0); BG FRACTION INSPIRED OXYGEN 100; BG HCO3 ACT 24.6 mmol/L (22.0-26.0); BG METHEMOGLOBIN 0.3 % (0.0-1.5); BG OXYGEN SATURATION 99.2 % (92.0-98.5); BG OXYHEMOGLOBIN 98.6 % (94.0-97.0); BG PCO2 46.6 mmHg (35.0-45.0); BG PO2 549.6 mmHg (75.0-100.0); BG SAMPLE SITE A-LINE; BG TIDAL VOLUME(mL) 500 mL; BG TOTAL HEMOGLOBIN 10.9 g/dL (12.0-18.0); BG VENT MODE AC/PRVC; BG VENT RATE 15 set
[2019-09-18] VITALS: BP 161/102
[2019-09-18 00:20] LABS: CHLORIDE 108 mEq/L (98-107); HEMATOCRIT. 31.3 % (42.0-52.0); HEMOGLOBIN. 10.4 g/dL (14.0-18.0); MEAN CORPUSCULAR VOLUME 81.1 fL (80.0-94.0); MEAN PLATELET VOLUME 10.9 fl (7.4-10.4); PLATELET 195 x1000/uL (130-400); RED BLOOD CELL COUNT 3.86 mill/uL (4.7-6.1)
[2019-09-18 00:24] LABS: AMYLASE 169 IU/L (25-115)
[2019-09-18 00:26] LABS: PHOSPHORUS 4.4 mg/dL (2.5-4.9)
[2019-09-18 00:28] LABS: CREATINE KINASE 171 IU/L (39-308)
[2019-09-18 00:29] LABS: CREATINE KINASE MB FRACTION 3.6 ng/mL (0.5-3.6)
[2019-09-18 00:51] LABS: INR 1.4; PARTIAL THROMBOPLASTIN TIME 26.2 sec (23.4-31.0); PROTHROMBIN TIME 14.3 sec (9.6-11.0)
[2019-09-18] MEDS ORDERED: KCL 20MEQ/100ML PREMIX 100 ML IV NR (01:00)
[2019-09-18] MEDS ORDERED: DEXT 5% IV SCH (01:15)
[2019-09-18] MEDS ORDERED: POTASSIUM CHLORIDE IV SCH (01:15)
[2019-09-18] MEDS ORDERED: WATER IV SCH (01:15)
[2019-09-18 01:46] LABS: PLATELET ESTIMATE NORMAL
[2019-09-18] MEDS ORDERED: ROCURONIUM BROMIDE 10MG/ML VIAL 5ML IV ONE (03:20)
[2019-09-18] MEDS ORDERED: HEPARIN 5000 UNITS/ML VIAL ONE (03:40)
[2019-09-18] MEDS ORDERED: EPINEPHRINE 1:1000 1 MG/ML AMP ONE (03:53)
[2019-09-18] MEDS ORDERED: DOPAMINE 400MG/250ML PREMIX 250 ML IV ONE (03:54)
[2019-09-18] MEDS ORDERED: EPINEPHRINE 0.1MG/ML (1:10,000) 10ML SYR ONE (04:41)
== END 2019-09-18 02:48 | disposition expired | DRG 80 ==
LOC: MICUSO 16:16 → MICUNO 20:00
PROC: 5A1955Z Respiratory Ventilation, Greater than 96 Consecutive Hours (ICD-10-PCS; principal; 2019-09-12)
PROC: 0BH17EZ Insertion of Endotracheal Airway into Trachea, Via Natural or Artificial Opening (ICD-10-PCS; 2019-09-12)
PROC: 02HV33Z Insertion of Infusion Device into Superior Vena Cava, Percutaneous Approach (ICD-10-PCS; 2019-09-13)
DX: J96.00 Acute respiratory failure, unspecified whether with hypoxia or hypercapnia; I63.511 Cerebral infarction due to unspecified occlusion or stenosis of right middle cerebral artery; N17.0 Acute kidney failure with tubular necrosis; K92.2 Gastrointestinal hemorrhage, unspecified; I60.9 Nontraumatic subarachnoid hemorrhage, unspecified; I10 Essential (primary) hypertension; D50.9 Iron deficiency anemia, unspecified; I95.9 Hypotension, unspecified; E87.8 Other disorders of electrolyte and fluid balance, not elsewhere classified; D72.829 Elevated white blood cell count, unspecified; Z86.73 Personal history of transient ischemic attack (TIA), and cerebral infarction without residual deficits; Z52.89 Donor of other specified organs or tissues
CPT/HCPCS: 36415; 36600; 71045; 71250; 74176; 76705; 80048; 80053; 80076; 80202; 81003; 82150; 82248; 82375; 82550; 82553; 82805; 82962; 82977; 83605; 83615; 83735; 83930; 84100; 84484; 85025; 86850; 86900; 86920; 87070; 93005; 93306; J1120; J1250; J1265; J1644; J1815; J1940; J2543; J2930; J3370; J3411; J3430; J3480; J3490; J7040; J7050; J7060; P9016; P9047